=== PATIENT | female | born 1990 | race Caucasian/White ===

== ENCOUNTER → 2016-12-07 | Outpatient (CLI) | payer BC, OTHER ==
--- NOTE | 2016-12-08 10:00 | US ---
EXAMINATION TYPE: US OB anatomy transabd DATE OF EXAM: 12/07/2016 3:52 PM COMPARISON: NONE HISTORY: LGA TECHNIQUE: Transabdominal (TA) EXAM MEASUREMENTS: GESTATIONAL AGE / DATING Physician Established: (33 weeks/4 days) EDC: 01/21/2017 Dates by LMP: (33 weeks/4 days) EDC: 01/21/2017 Dates by First Scan: (33 weeks/4 days) EDC: 01/21/2017 Dates by Current Scan for: (33 weeks/4 days) EDC: 01/21/2017 SURVEY IUP: Single PLACENTA: Anterior PREVIA: No previa NAIN: 13.3 cm Normal CERVICAL LENGTH (transabdominal: norm > 3.0cm): 3.3 cm BIOMETRY PRESENTATION: Vertex LIE: Longitudinal BPD: 8.4 cm 33 weeks / 5 days HC: 30.4 cm 33 weeks / 6 days AC: 30.3 cm 34 weeks / 2 days FL: 6.3 cm 32 weeks / 4 days ESTIMATED WEIGHT IN GRAMS: 2253 grams ESTIMATED WEIGHT IN LBS/OZS: 4 lbs. 15 oz. WEIGHT PERCENTAGE BASED ON ESTABLISHED DATE: 45 % HC/AC: 1.00 normal FL/AC: 20 normal HEART RATE: 161 bpm RHYTHM: Normal ANATOMY SEEN (within normal limits): * Lateral Vent (< 1 cm) 0.9 cm * Midline Falx Cavus Septi Pellucidi Four Chamber Heart Stomach Situs Nose / Lips Diaphragm Kidneys (bilateral) Bladder Cord Insert Three Vessel Cord Longitudinal Spine Transverse Spine ANATOMY NOT SEEN: Cisterna Magna (< 1.1 cm) * Nuchal Fold (< 0.6 cm) * Cerebellum (varies with age) Choroid Plexus (bilateral) Outflow tracts: LVOT/RVOT Arms (bilateral) Legs (bilateral) TECHNOLOGIST IMPRESSION: viable iup, growth congruent with established dates, no abnormality seen by ultrasound, some exam limitations due to advanced age and lie IMPRESSION: 1. Single intrauterine gestation estimated at 33 weeks 4 days gestation. This would've a calculated E DC of 01/21/2017. Cardiac activity measures 161 bpm. 2. There is some limitation on small parts especially through the brain. Extremities are not we ll evaluated.
== END | disposition home or self-care (01) ==
LOC: RADUSWWP 15:30
PROVIDERS: ATTEND Obstetrics & Gynecology
DX: O36.63X0 Maternal care for excessive fetal growth, third trimester, not applicable or unspecified (principal); Z3A.33 33 weeks gestation of pregnancy
CPT/HCPCS: 76811

== ENCOUNTER 2017-01-07 12:48 | Inpatient (IN) | payer BC, OTHER ==
[2017-01-07 13:34] LABS: Appearance,Urine Cloudy (Clear); Bacteria,Urine Occasional /hpf; Bilirubin,Urine Negative (Negative); Glucose,Urine (UA) Negative (Negative); Ketones,Urine Negative (Negative); Leukocyte Esterase,Urine Large (Negative); Mucus,Urine Rare /hpf; Nitrite,Urine Negative (Negative); PH, Urine 6.5 (5.0-8.0); Particle Count 8364; Protein,Urine Trace (Negative); RBC,Urine 4 /hpf (0-5); Specific Gravity,Urine 1.011 (1.001-1.035); Squamous Epithelial Cell,Urine 9 /hpf (0-4); UA Billing (MACRO vs. MICRO) MICRO; Urobilinogen,Urine <2.0 mg/dL (<2.0); WBC,Urine 63 /hpf (0-5)
[2017-01-07 13:45] LABS: Basophils % (A) 0 %; CH 35.1; CHCM 35.1; Eosinophils # (A) 0.1 k/uL (0-0.7); Eosinophils % (A) 1 %; HCT 34.7 % (34.0-46.0); HDW 3.12; HGB 12.3 gm/dL (11.4-16.0); Luc # (Auto) 0.19; Luc % (Auto) 2; Lymphocytes # (A) 1.7 k/uL (1.0-4.8); Lymphocytes % (A) 17 %; MCH 35.6 pg (25.0-35.0); MCHC 35.3 g/dL (31.0-37.0); MCV 100.6 fL (80.0-100.0); Macrocytosis Slight; Mean Platelet Volume 7.9; Monocytes # (A) 0.6 k/uL (0-1.0); Monocytes % (A) 5 %; Neutrophils # (A) 7.7 k/uL (1.3-7.7); Neutrophils % (A) 75 %; RBC 3.45 m/uL (3.80-5.40); RDW 14.1 % (11.5-15.5); WBC 10.2 k/uL (3.8-10.6); WBC (Perox) 10.58
[2017-01-07 14:02] LABS: ALT 25 U/L (9-52); AST 16 U/L (14-36); LDH 388 U/L (313-618); Non-African American GFR(MDRD) 54 (>60 ml/min/1.73 sqM); Uric Acid 7.4 mg/dL (3.7-7.4)
[2017-01-07] MEDS ORDERED: TERBUTALINE 1 MG/ML VIAL SQ PRN (14:20)
[2017-01-07] MEDS ORDERED: METHYLERGONOVINE 0.2 MG/ML 1 ML AMP IM PRN (14:20)
[2017-01-07] MEDS ORDERED: CARBOPROST TROMETHAMINE 250 MCG/ML 1 ML AMP IM PRN (14:20)
[2017-01-07] MEDS ORDERED: OXYTOCIN 10 UNIT/ML 1 ML VIAL IM PRN (14:20)
[2017-01-07] MEDS ORDERED: LIDOCAINE 1% (PF) 10 MG/ML (30 ML SDV) SQ PRN (14:20)
[2017-01-07] MEDS ORDERED: OXYTOCIN 30 UNITS/500 ML NS 30 UNIT in SALINE 1 500ML.BAG IV SCH (14:30)
[2017-01-07] MEDS ORDERED: ONDANSETRON 4 MG/2 ML VIAL IVP STA (14:31)
[2017-01-07] MEDS ORDERED: BUTORPHANOL 1 MG/ML 1 ML VIAL IV PRN (14:31)
[2017-01-07] MEDS: LACTATED RINGERS 1,000 ML IV SCH ×3 (15:03→22:03)
[2017-01-07 15:33] VITALS: BMI 27.8
[2017-01-07] MEDS ORDERED: ACETAMINOPHEN TAB 325 MG TAB PO STA (16:11)
[2017-01-07] MEDS ORDERED: fentaNYL (PF) 50 MCG/ML 5 ML AMP ONE (20:10)
[2017-01-07] MEDS ORDERED: ePHEDrine 50 MG/ML 1 ML AMP ONE (20:10)
[2017-01-07] MEDS ORDERED: BUPIVACAINE (PF) 0.25% 30 ML VIAL ONE (20:10)
[2017-01-07] MEDS ORDERED: SODIUM CHLORIDE 0.9% 100 ML BAG ONE (20:10)
[2017-01-07] MEDS ORDERED: BUPIVACAINE (PF) 0.25% 25 ML, fentaNYL (PF) 200 MCG in SODIUM CHLORIDE 0.9% 71 ML EPIDURAL ONE (20:30)
--- NOTE | 2017-01-07 21:13 | P.HPOB ---
History of Present Illness H&P Date: 01/07/17 Chief Complaint: Headache, elevated blood pressures This is a 26-year-old female 5 para 2 with an estimated date of confinement of 01/21/2017, estimated gestational age of 38-0/7 weeks, who presents to labor and delivery complaining of a headache since yesterday morning and it has not been relieved with Tylenol. She denies any blurry vision. She does complain of right epigastric a since this morning. She also did have some nausea and some vomiting today. She has been feeling good movement. She denies any leakage of fluid. She has been feeling irregular contractions. Her care has been with Dr. Maxwell and has been uncomplicated up until this point. She was observed in triage and had several blood pressures in the 140s over 90s. Lab work was all normal other than her creatinine was slightly elevated. She is being admitted for induction of labor secondary to gestational hypertension with symptomatology. labs: Syphilis antibody-negative nonreactive Random glucose 98 Hepatitis B surface antigen-negative Hemoglobin-12.1 Rubella-immune Blood type-O+ Antibody screen-negative Obstetrical ultrasound-normal anatomy One hour Glucola-115 Group B streptococcus-negative Obstetrical history: . She has a history of 2 vaginal deliveries at term and 2 miscarriages. She has no history of preeclampsia in either of her previous pregnancies. Gynecologic history: No history of sexually transmitted diseases. Social history: She is and works as a [id number] mom. Review of Systems Constitutional: Denies chills, Denies fever Eyes: denies blurred vision Cardiovascular: Denies shortness of breath Gastrointestinal: Reports abdominal pain (Right upper quadrant), Reports nausea , Reports vomiting Genitourinary: Reports , Denies dysuria Musculoskeletal: Denies myalgias Neurological: Reports headaches, Denies numbness, Denies weakness Past Medical History Additional Past Medical History / Comment(s): CYSTIC FIBROSIS History of Any Multi-Drug Resistant Organisms: None Reported Past Surgical History: Hernia Repair Additional Past Surgical History / Comment(s): LEFT KNEE SURGERY TIMES 2, LEFT WRIST SURGERY, HERNIA Past Anesthesia/Blood Transfusion Reactions: No Reported Reaction Past Psychological History: No Psychological Hx Reported Smoking Status: Never smoker Past Alcohol Use History: None Reported Past Drug Use History: None Reported - Past Family History Father Family Medical History: Diabetes Mellitus Medications and Allergies Home Medications Medication Instructions Recorded Confirmed Type Albuterol Inhaler [Ventolin 1 - 2 puff INHALATION Q6HR PRN 09/27/15 01/07/17 History Inhaler] Acetaminophen Tab [Tylenol Tab] 650 mg PO Q4H 01/07/17 01/07/17 History Pnv with Ca,No.72/Iron/FA 1 tab PO DAILY 01/07/17 01/07/17 History [ Plus Tablet] Allergies Allergy/AdvReac Type Severity Reaction Status Date / Time iodine AdvReac Rash/Hives Verified 09/27/15 11:15 povidone-iodine AdvReac Rash/Hives Verified 09/27/15 11:15 [From Betadine] soap [From Betadine] AdvReac Rash/Hives Verified 09/27/15 11:15 tobramycin AdvReac Nausea & Verified 09/27/15 11:15 Vomiting Exam Osteopathic Statement: *. No significant issues noted on an osteopathic structural exam other than those noted in the History and Physical/Consult. - Vital Signs Vital signs: Vital Signs Temp Pulse Resp BP Pulse Ox 01/07/17 14:24 97.9 F 117 H 16 136/90 100 01/07/17 13:12 97.9 F 117 H 16 136/90 100 Intake and Output 01/07/17 01/07/17 01/07/17 06:59 14:59 22:59 Other: Weight 68.946 kg Patient Weight 01/08/17 06:59 Weight 68.946 kg Gen.: Well-developed well-nourished white female in no acute distress HEENT: Within normal limits Heart regular rate and rhythm Lungs: Clear to auscultation bilaterally Abdomen: Cervix: 1-2 cm/60%/-2 station heart tones: Reactive Contractions: Irregular Extremities: Trace edema, negative Homans Results Result Diagrams: 01/07/17 13:35 01/07/17 13:35 Abnormal Lab Results - Last 24 Hours (Table) 01/07/17 01/07/17 01/07/17 Range/Units 13:05 13:35 13:35 RBC 3.45 L (3.80-5.40) m/uL MCV 100.6 H (80.0-100.0) fL MCH 35.6 H (25.0-35.0) pg Creatinine 1.19 H (0.52-1.04) mg/dL Urine Appearance Cloudy H (Clear) Urine Protein Trace H (Negative) Ur Leukocyte Esterase Large H (Negative) Urine WBC 63 H (0-5) /hpf Ur Squamous Epith Cells 9 H (0-4) /hpf Urine Bacteria Occasional H (None) /hpf Urine Mucus Rare H (None) /hpf Assessment and Plan (1) Gestational hypertension Status: Acute Plan: Will proceed with induction of labor secondary to gestational hypertension with symptomatology. We'll proceed with oxytocin induction of labor and artificial rupture of membranes. Epidural anesthesia if desired. Expectant management. We'll continue to monitor blood pressures closely.
--- NOTE | 2017-01-07 21:29 | P.MSEPDOC ---
Presenting Problems - Arrival Data Date of Arrival on Unit: 01/07/17 Time of Arrival on Unit: 12:45 Mode of Transport: Ambulatory - Complaint OB-Reason for Admission/Chief Complaint: Observation/Evaluation Comment: headache x2 days, right shoulder/rib pain, nausea/vomiting x2 days Medical History - Information : 5 Para: 2 Term: 2 : 0 Abortions: Spontaneous or Elective: 2 Number of Living Children: 2 - Gestational Age Expected Date of Delivery: 01/21/17 Gestational Age by ARIANNA (wks/days): 38 Weeks and 0 Days Review of Systems - Review of Systems Constitutional: No problems Breast: No problems ENT: No problems Cardiovascular: No problems Respiratory: No problems Gastrointestinal: No problems Genitourinary: No problems Musculoskeletal: No problems Neurological: No problems Skin: No problems Vital Signs - Temperature Temperature: 97.9 F Temperature Source: Temporal Artery Scan - Pulse Right Sitting Brachial Pulse Rate: 117 Pulse Assessment Method: Automatic Cuff - Respirations Respiratory Rate: 16 Oxygen Delivery Method: Room Air O2 Sat by Pulse Oximetry: 100 - Blood Pressure Right Arm Sitting Blood Pressure: 136/90 Blood Pressure Mean: 105 Blood Pressure Source: Automatic Cuff Medical Screen Scoring (Pre) - Cervical Exam Dilation: 1-3 cm = 1 Effacement: More than 50% = 2 Membranes: Intact - Uterine Contractions Frequency: > or = 36 weeks =2 Duration: N/A Intensity: N/A - Maternal Vital Signs Maternal Temperature: N/A Maternal Blood Pressure: N/A Signs of Preeclampsia: Headache = 1, Nausea/Vomiting = 1, Visual Disturbance = 1 Maternal Respirations: N/A - Maternal Trauma Maternal Trauma: N/A - Assessment Baseline FHR: 145 Heart Rate - NICHD Category: Category I (Normal) = 0 NST: Reactive Position: N/A Station: N/A - Total Score Total Score (Pre): 8 - Level of Risk Level of Risk: Medium (6-9) Physician Notification (Pre) - Physician Notified Physician Notified Date: 01/07/17 Physician Notified Time: 13:20 Physician/Practitioner Notifed:: Dr Mendoza Spoke With: Dr Mendoza New Order Received: Yes - Notification Comment Comment: PIH labs, PO ice/fluids, sterile vaginal exam. Call with report. Physician Notification (Post) - Physician Notified Physician Notified Date: 01/07/17 Physician Notified Time: 14:20 Physician/Practitioner Notified:: Dr Mendoza Spoke With: Dr Mendoza New Order Received: Yes - Notification Comment Comment: Admit for induction of labor. start pitocin per protocol. Orders received for pain managment. Disposition - Disposition OB Disposition: Admit, LDRP Suite I agree with the RN Medical Screening Exam: Yes Risk & Benefit of care provided described in d/c instruction: Yes Diagnosis: GESTATIONAL HTN W/O SIGNIFICANT PROTEINURIA, THIRD TRIMESTER
--- NOTE | 2017-01-07 23:15 | P.PROBDLV ---
Vaginal Delivery Note - . Vaginal Delivery Note: The patient progressed to complete dilation after oxytocin induction of labor and artificial rupture membranes with clear fluid noted. She did receive an epidural anesthetic. Once reaching complete dilation she began pushing. Infant 's head came to a crown. With one further push the 's head delivered across the perineum followed by the anterior shoulder. Nose and mouth were bulb suctioned at the perineum. With one further push the infant's body delivered across the perineum and was placed on mother's abdomen. Cord was clamped and cut and was taken to warmer for evaluation. A viable male infant was noted with scores of 9 at 1 minute and 9 at 5 minutes and infant weight of 7 lbs. 1 oz. Placenta delivered shortly thereafter, intact, with a three-vessel cord. Uterus contracted well after oxytocin was given and uterine massage was carried out. Inspection of the perineum revealed no perineal lacerations. A gloved hand was placed into the intrauterine cavity and there was noted to be a small amount of membranous type tissue adherent anteriorly. This was removed easily and bleeding was very minimal. Estimated blood loss is approximately 100 mL's. Both mother and are in stable condition.
[2017-01-08] MEDS ORDERED: BENZOCAINE/MENTHOL SPRAY 1 GM/SPRAY AEROSOL TOPICAL PRN (03:37)
[2017-01-08] MEDS ORDERED: diphenhydrAMINE 50 MG/ML 1 ML VIAL IVP PRN ×2 (03:37)
[2017-01-08] MEDS ORDERED: OXYTOCIN 30 UNITS/500 ML NS 30 UNIT in SALINE 1 500ML.BAG IV SCH (03:37)
[2017-01-08] MEDS ORDERED: diphenhydrAMINE 25 MG CAP PO PRN (03:37)
[2017-01-08] MEDS ORDERED: WITCH HAZEL 1 EACH MED..PAD TOPICAL PRN (03:37)
[2017-01-08] MEDS ORDERED: ACETAMINOPHEN TAB 325 MG TAB PO PRN (03:37)
[2017-01-08] MEDS ORDERED: LANOLIN CREAM 5 GM TUBE TOPICAL PRN (03:37)
[2017-01-08] MEDS ORDERED: ZOLPIDEM 5 MG TAB PO PRN (03:37)
[2017-01-08] MEDS ORDERED: SIMETHICONE 80 MG CHEWABLE PO PRN (03:37)
[2017-01-08] MEDS ORDERED: IBUPROFEN 600 MG TAB PO PRN (03:37)
[2017-01-08] MEDS ORDERED: ALBUTEROL INHALER 60 PUFF/8 GM INHALER INHALATION PRN (03:37)
[2017-01-08] MEDS ORDERED: HYDROCORTISONE 2.5% RECTAL CREAM 30 GM TUBE RECTAL PRN (03:37)
[2017-01-08] MEDS ORDERED: diphenhydrAMINE 50 MG CAP PO PRN (03:37)
[2017-01-08] MEDS ORDERED: Acetaminophen-Codeine 300-30mg TAB PO PRN ×2 (03:37)
[2017-01-08] MEDS ORDERED: ACETAMINOPHEN TAB 325 MG TAB PO SCH (03:45)
[2017-01-08] MEDS ORDERED: ALBUTEROL NEBULIZED 2.5 MG/3 ML INHALATION PRN (04:30)
[2017-01-08] MEDS ORDERED: ONDANSETRON 4 MG/2 ML VIAL IVP STA (04:30)
[2017-01-08 06:57] LABS: Basophils % (A) 0 %; CH 35.2; CHCM 34.9; Eosinophils % (A) 1 %; HCT 30.4 % (34.0-46.0); HDW 3.01; HGB 10.5 gm/dL (11.4-16.0); Luc # (Auto) 0.18; Luc % (Auto) 2; Lymphocytes # (A) 1.4 k/uL (1.0-4.8); Lymphocytes % (A) 14 %; MCH 35.1 pg (25.0-35.0); MCHC 34.6 g/dL (31.0-37.0); MCV 101.5 fL (80.0-100.0); Macrocytosis Slight; Mean Platelet Volume 8.1; Monocytes # (A) 0.6 k/uL (0-1.0); Monocytes % (A) 6 %; Neutrophils # (A) 7.6 k/uL (1.3-7.7); Neutrophils % (A) 77 %; RBC 2.99 m/uL (3.80-5.40); RDW 14.2 % (11.5-15.5); WBC 9.9 k/uL (3.8-10.6); WBC (Perox) 10.48
[2017-01-08] MEDS: SENNOSIDES-DOCUSATE SODIUM 1 EACH TAB PO SCH (08:00)
[2017-01-08 08:59] VITALS: RESP 18
[2017-01-08] MEDS ORDERED: NON-FORMULARY DRUG (Pnv With Ca,No.72/Iron/Fa [Prenatal Plus Tablet] 1 TAB) PO SCH (09:00)
--- NOTE | 2017-01-08 12:14 | P.PNOBGVD ---
Subjective - Subjective Principal diagnosis: Status post vaginal delivery day #1 Interval history: Patient is doing okay. She has had some occasional nausea still. Lochia is decreasing. She is bottle feeding. Pain is fairly well controlled. She did not require any pain medication. She denies any headache at this time. Patient reports: Reports appetite normal, Reports voiding normally, Reports pain well controlled, Reports ambulating normally Broseley: doing well, bottle feeding Objective - Latest Vital Signs Latest vital signs: Vital Signs Temp Pulse Resp BP Pulse Ox 01/08/17 08:00 97.8 F 77 18 138/81 01/08/17 04:00 98.1 F 95 16 139/75 01/08/17 01:19 111 H 16 136/76 01/08/17 00:49 98.1 F 89 16 144/69 01/08/17 00:19 94 18 151/73 01/08/17 00:00 93 18 148/78 01/07/17 23:49 36.4 F L 93 18 148/78 01/07/17 23:34 36.4 F L 114 H 18 144/93 01/07/17 23:19 36.4 F L 141 H 18 122/65 01/07/17 21:29 97.9 F 117 H 16 136/90 100 01/07/17 14:24 97.9 F 117 H 16 136/90 100 01/07/17 13:12 97.9 F 117 H 16 136/90 100 Intake and Output 01/07/17 01/08/17 01/08/17 22:59 06:59 14:59 Output Total 100 200 Balance -100 -200 Output: Urine 100 Estimated Blood Loss 200 Other: # Voids 1 - Exam Extremities: Present: normal. Absent: tenderness, edema Abdomen: Present: normal appearance, soft. Absent: distention, tenderness Uterus: Present: normal, firm. Absent: tenderness - Labs Labs: Abnormal Lab Results - Last 24 Hours (Table) 01/07/17 01/07/17 01/07/17 Range/Units 13:05 13:35 13:35 RBC 3.45 L (3.80-5.40) m/uL Hgb (11.4-16.0) gm/dL Hct (34.0-46.0) % MCV 100.6 H (80.0-100.0) fL MCH 35.6 H (25.0-35.0) pg Creatinine 1.19 H (0.52-1.04) mg/dL Urine Appearance Cloudy H (Clear) Urine Protein Trace H (Negative) Ur Leukocyte Esterase Large H (Negative) Urine WBC 63 H (0-5) /hpf Ur Squamous Epith Cells 9 H (0-4) /hpf Urine Bacteria Occasional H (None) /hpf Urine Mucus Rare H (None) /hpf 01/08/17 Range/Units 06:40 RBC 2.99 L (3.80-5.40) m/uL Hgb 10.5 L (11.4-16.0) gm/dL Hct 30.4 L (34.0-46.0) % MCV 101.5 H (80.0-100.0) fL MCH 35.1 H (25.0-35.0) pg Creatinine (0.52-1.04) mg/dL Urine Appearance (Clear) Urine Protein (Negative) Ur Leukocyte Esterase (Negative) Urine WBC (0-5) /hpf Ur Squamous Epith Cells (0-4) /hpf Urine Bacteria (None) /hpf Urine Mucus (None) /hpf Assessment and Plan (1) Gestational hypertension Current Visit: Yes Status: Acute Code(s): O13.9 - GESTATIONAL HTN W/O SIGNIFICANT PROTEINURIA, UNSP TRIMESTER SNOMED Code(s): 54147436 (2) Vaginal delivery Narrative/Plan: Impression is status post vaginal delivery day #1. Most of her symptoms have resolved other than some mild nausea which she feels may have been due to a little bit of a stomach flu. This is improving. We'll continue with care today and anticipate discharge home tomorrow morning. Current Visit: Yes Status: Acute Code(s): O80 - ENCOUNTER FOR FULL-TERM UNCOMPLICATED DELIVERY SNOMED Code(s): 165900206
--- NOTE | 2017-01-08 12:17 | P.DS ---
Providers Date of admission: 01/07/17 14:22 Expected date of discharge: 01/08/17 Attending physician: Bonnie Mendoza Primary care physician: Stated None - Discharge Diagnosis(es) (1) Gestational hypertension Current Visit: Yes Status: Acute (2) Vaginal delivery Current Visit: Yes Status: Acute Hospital Course: This is a 26-year-old female 5 para 2 at 38-0/7 weeks who presented with headache, elevated blood pressures, nausea and vomiting. Her labs were all essentially normal other than trace of protein and slightly elevated creatinine. However based on blood pressure criteria, she did meet the criteria for gestational hypertension and since she is over 37 weeks was recommended induction of labor. She underwent oxytocin induction of labor and delivered vaginally a viable male with scores of 9 at 1 minute and 9 at 5 minutes and infant weight of 7 lbs. 1 oz. on 01/07/2017. Her course has been essentially uncomplicated. Lochia is decreasing. Her headache has resolved. She only has mild occasional nausea at this time. Vital signs are stable with decreasing blood pressures. Abdomen is soft with fundus firm and nontender. Impression is status post vaginal delivery day #1. Plan is to discharge home tomorrow. Routine instructions are given. She is advised to follow up with Dr. Maxwell in 6 weeks. She declines a need for any pain medications. She is advised to call the office if she has any further questions or concerns prior to her appointment time. Procedures: Oxytocin induction of labor Spontaneous vaginal delivery of a viable male infant on 01/07/2017. Patient Condition at Discharge: Stable Plan - Discharge Summary Discharge Medication List Albuterol Inhaler [Ventolin Inhaler] 1 - 2 puff INHALATION Q6HR PRN 09/27/15 [ History] Acetaminophen Tab [Tylenol Tab] 650 mg PO Q4H 01/07/17 [History] Pnv with Ca,No.72/Iron/FA [ Plus Tablet] 1 tab PO DAILY 01/07/17 [ History] Follow up Appointment(s)/Referral(s): Gregory Maxwell DO [Doctor of Osteopathic Medicine] - 6 Weeks Activity/Diet/Wound Care/Special Instructions: Instructions 1. Do not begin any exercise program for 3 weeks. 2. Do not resume sexual relations for 3 weeks or longer if uncomfortable. 3. You may take tub baths or showers at any time. 4. You may use tampons if desired after 3 weeks. 5. Keep the area of episiotomy (stitches) clean and dry. 6. If you are not nursing, wear a good fitting, supportive bra during the day and limit fluid intake for at least 1 week to prevent breast engorgement. 7. Call the office, [phone], within the next week to make appointment for your 6 week checkup if it has not already been made. 8. Report any of the following occurrences to the doctor promptly: a. Heavy, excessive bleeding b. Chills, fever c. Burning or frequency of urination d. Pain or redness and breasts if nursing e. Increasing pain or swelling in episiotomy (stitches). In addition to the above instructions, the following additional should be followed: 1. No heavy lifting or straining (exercising) until after 6 week checkup. 2. Keep abdominal incision clean and dry: You may wear a dressing if more comfortable. 3. Make office appointment for 10 days after going home or as instructed by her doctor. Discharge Disposition: HOME SELF-CARE
[2017-01-08 20:13] VITALS: PULSE 74
[2017-01-09 00:39] VITALS: TEMP 98.4
[2017-01-09 09:31] VITALS: BP 139/87
[2017-01-09] MEDS: SENNOSIDES-DOCUSATE SODIUM 1 EACH TAB PO SCH (09:31)
== END 2017-01-09 10:20 | disposition home or self-care (01) | DRG 775 ==
LOC: FBPOP 12:48 → 4FBP 14:22
PROVIDERS: ADMIT Obstetrics & Gynecology; ATTEND Obstetrics & Gynecology
PROC: 10E0XZZ Delivery of Products of Conception, External Approach (ICD-10-PCS; principal; 2017-01-07)
PROC: 00HU33Z Insertion of Infusion Device into Spinal Canal, Percutaneous Approach (ICD-10-PCS; 2017-01-07)
PROC: 3E033VJ Introduction of Other Hormone into Peripheral Vein, Percutaneous Approach (ICD-10-PCS; 2017-01-07)
PROC: 10907ZC Drainage of Amniotic Fluid, Therapeutic from Products of Conception, Via Natural or Artificial Opening (ICD-10-PCS; 2017-01-07)
DX: O13.4 Gestational [pregnancy-induced] hypertension without significant proteinuria, complicating childbirth (principal); E84.9 Cystic fibrosis, unspecified; O75.89 Other specified complications of labor and delivery; Z37.0 Single live birth; Z3A.38 38 weeks gestation of pregnancy; Z83.3 Family history of diabetes mellitus; Z88.8 Allergy status to other drugs, medicaments and biological substances; Z88.1 Allergy status to other antibiotic agents; Z91.041 Radiographic dye allergy status
CPT/HCPCS: 59025; 81001; 82565; 83615; 84450; 84460; 84550; 85025; 88307; 99213

== ENCOUNTER → 2020-11-25 | Outpatient (CLI) | payer BC, OTHER ==
[2020-11-25 17:55] LABS: AST 15 U/L (13-35)
[2020-11-25 17:56] LABS: ALT 14 U/L (8-44)
== END | disposition home or self-care (01) ==
LOC: LABWHC1 07:58
PROVIDERS: ATTEND Obstetrics & Gynecology
DX: O26.619 Liver and biliary tract disorders in pregnancy, unspecified trimester (principal)
CPT/HCPCS: 36415; 84450; 84460

== ENCOUNTER → 2020-12-12 | Outpatient (CLI) | payer BC, OTHER ==
[2020-12-13 03:19] LABS: ALT 18 U/L (8-44); AST 20 U/L (13-35)
== END | disposition home or self-care (01) ==
LOC: LABWHC1 15:59
PROVIDERS: ATTEND Obstetrics & Gynecology
DX: O26.619 Liver and biliary tract disorders in pregnancy, unspecified trimester (principal); Z3A.00 Weeks of gestation of pregnancy not specified
CPT/HCPCS: 36415; 82542; 84450; 84460

== ENCOUNTER 2020-12-30 14:37 | Observation (INO) | payer BC, OTHER ==
[2020-12-30 16:05] LABS: Appearance,Urine Cloudy (Clear); Bacteria,Urine Moderate /hpf; Bilirubin,Urine Negative (Negative); Blood,Urine Negative (Negative); Color,Urine Light Yellow; Glucose,Urine (UA) Negative (Negative); Ketones,Urine Negative (Negative); Leukocyte Esterase,Urine Large (Negative); Mucus,Urine Rare /hpf; Nitrite,Urine Negative (Negative); PH, Urine 6.5 (5.0-8.0); Protein,Urine Negative (Negative); RBC,Urine 2 /hpf (0-5); Specific Gravity,Urine 1.008 (1.001-1.035); Squamous Epithelial Cell,Urine 8 /hpf (0-4); Urobilinogen,Urine <2.0 mg/dL (<2.0); WBC,Urine 8 /hpf (0-5)
[2020-12-30 16:06] LABS: Basophils % (A) 0 %; Eosinophils # (A) 0.1 k/uL (0-0.7); Eosinophils % (A) 1 %; HGB 12.2 gm/dL (11.4-16.0); Lymphocytes # (A) 2.1 k/uL (1.0-4.8); Lymphocytes % (A) 21 %; MCH 34.4 pg (25.0-35.0); MCHC 33.9 g/dL (31.0-37.0); MCV 101.3 fL (80.0-100.0); Macrocytosis Slight; Mean Platelet Volume 8.6; Monocytes # (A) 0.6 k/uL (0-1.0); Monocytes % (A) 6 %; Neutrophils # (A) 7.2 k/uL (1.3-7.7); Neutrophils % (A) 71 %; Platelet Count 338 k/uL (150-450); RBC 3.56 m/uL (3.80-5.40); RDW 14.1 % (11.5-15.5); WBC 10.2 k/uL (3.8-10.6)
[2020-12-30 16:11] LABS: Protein/Creatinine Ratio,Urine 0.34
[2020-12-30 16:12] LABS: ALT 10 U/L (4-34); AST 20 U/L (14-36); African American GFR (CKD) >90 (>60 ml/min/1.73 sqM); Blood Urea Nitrogen 5 mg/dL (7-17); LDH 510 U/L (313-618); Non-African American GFR(CKD) >90 (>60 ml/min/1.73 sqM); Uric Acid 3.6 mg/dL (3.7-7.4)
--- NOTE | 2020-12-30 17:02 | P.HPOB ---
History of Present Illness H&P Date: 12/30/20 Chief Complaint: Urine : Rule out preeclampsia Sonal is a 30-year-old at 35 weeks gestation who arrived to my office today complaining of some epigastric pain. She does have cholestasis was difficult to say if this is from cholestasis, the , or potentially preeclampsia as she had pre-eclampsia with her last necessitating a early delivery. This Precis has been complicated by cholestasis which started multiple weeks ago. She has seen maternal medicine and she is taking medication for the symptoms. It is finally starting to help her symptoms. Her medical history is also significant for cystic fibrosis, but she has minimal sym ptoms or problems from this. Her blood pressures in the office and in labor and delivery have all been normal. The preponderance of her labs were also normal. The only issue was her protein to creatinine ratio. While her urine was negative her protein to creatinine ratio was 0.34 which is noted to be elevated in the mild preeclamptic range. Since this shows negative protein in her urine we are worrying a 24 urine to clarify the protein. As she has this epigastric discomfort plan to admit her and observe her with serial blood pressures and continued monitoring out of the preponderance of caution. All questions are answered for her. She had a by physical profile earlier today that was 10 out of 10 and her ultrasound showed baby was in emla breech presentation. NAIN at that time was also 8.1. Should delivery be needed, consideration for possible version and induction is a consideration as she is but without lobe an NAIN it may be somewhat, complicated to do a version. This was all explained her all questions are answered for her at this time. On physical exam vital signs again are stable and afebrile. Heart regular, lungs clear, extremities without pain. Abdomen soft is no specific pain on palpation. Deep tendon reflexes are +1 to +2 out of 4. No other signs or symptoms of preeclampsia. She denies visual changes/headache. Assessment intrauterine at 35 weeks, breech presentation, questionable mild preeclampsia with cholestasis of Plan 24 urine with continued observation. Should it appear that she needs to be delivered in the next 48 hours consideration for steroids will be given. Past Medical History Additional Past Medical History / Comment(s): CYSTIC FIBROSIS History of Any Multi-Drug Resistant Organisms: None Reported Past Surgical History: Hernia Repair Additional Past Surgical History / Comment(s): LEFT KNEE SURGERY TIMES 2, LEFT WRIST SURGERY, HERNIA Past Anesthesia/Blood Transfusion Reactions: No Reported Reaction Past Psychological History: No Psychological Hx Reported Past Alcohol Use History: None Reported Past Drug Use History: None Reported - Past Family History Father Family Medical History: Diabetes Mellitus Medications and Allergies Home Medications Medication Instructions Recorded Confirmed Type Albuterol Inhaler (Mhu) [Ventolin 1 - 2 puff INHALATION Q6HR PRN 09/27/15 0 01/07/17 History Inhaler] Acetaminophen Tab [Tylenol Tab] 650 mg PO Q4H 01/07/17 01/07/17 History Pnv,Calcium 72/Iron/Folic Acid 1 tab PO DAILY 01/07/17 01/07/17 History [ Plus Tablet] Allergies Allergy/AdvReac Type Severity Reaction Status Date / Time iodine AdvReac Rash/Hives Verified 12/30/20 14:44 povidone-iodine AdvReac Rash/Hives Verified 12/30/20 14:44 [From Betadine] soap [From Betadine] AdvReac Rash/Hives Verified 12/30/20 14:44 tobramycin AdvReac Nausea & Verified 12/30/20 14:44 Vomiting Exam Osteopathic Statement: *. No significant issues noted on an osteopathic structural exam other than those noted in the History and Physical/Consult. Intake and Output 12/30/20 12/30/20 12/30/20 06:59 14:59 22:59 Other: Weight 74.389 kg Results Result Diagrams: 12/30/20 15:39 12/30/20 15:39 Abnormal Lab Results - Last 24 Hours (Table) 12/30/20 12/30/20 12/30/20 Range/Units 15:39 15:39 15:48 RBC 3.56 L (3.80-5.40) m/uL MCV 101.3 H (80.0-100.0) fL BUN 5 L (7-17) mg/dL Creatinine 0.49 L (0.52-1.04) mg/dL Uric Acid 3.6 L (3.7-7.4) mg/dL Urine Appearance Cloudy H (Clear) Ur Leukocyte Esterase Large H (Negative) Urine WBC 8 H (0-5) /hpf Ur Squamous Epith Cells 8 H (0-4) /hpf Urine Bacteria Moderate H (None) /hpf Urine Mucus Rare H (None) /hpf
[2020-12-30 23:16] VITALS: RESP 16
[2020-12-31] MEDS ORDERED: ACETAMINOPHEN TAB 500 MG TAB PO PRN (08:38)
[2020-12-31] MEDS ORDERED: ursodioL 300 MG CAP PO SCH (08:45)
--- NOTE | 2020-12-31 08:48 | P.PN ---
Progress Note - Text Progress Note Date: 12/31/20 Sonal seen and evaluated this morning. Overall she is doing well. Her vital signs continued to be stable. She does have a new onset mild headache for which we'll attempt to treat with Tylenol. We'll restart her Actigall. And we'll continue current care awaiting her 24-hour urine. All questions are answered for her at this time. I decided based on her symptoms that we will now were and ultrasound of her liver and gallbladder to verify no other findings i.e. fatty liver or gallstones.
[2020-12-31] MEDS ORDERED: PANTOPRAZOLE 40 MG TABLET PO STA (09:43)
--- NOTE | 2020-12-31 11:23 | US ---
EXAMINATION TYPE: US abdomen limited DATE OF EXAM: 12/31/2020 COMPARISON: NONE CLINICAL HISTORY: pain. Pt states RUQ pain, pt states 35 weeks EXAM MEASUREMENTS: Liver Length: 14.5 cm Gallbladder Wall: 0.2 cm CBD: 0.3 cm Right Kidney: 11.0 x 4.5 x 4.5 cm Pancreas: Body wnl, tail obscured by overlying bowel gas Liver: Probable hemangioma right inferior lobe= 1.2 x 1.0 x 1.2 cm Gallbladder: wnl Evidence for sonographic Rojo's sign: No CBD: wnl Right Kidney: Mild hydro, lower pole gassed out Patient is . The was not evaluated by ultrasound this time. IMPRESSION: 1. Mild right hydronephrosis. 2. Probable hemangioma right lobe liver
[2020-12-31 17:25] LABS: Total Volume 24 Hour,Urine 2500 mls (800-1800)
[2020-12-31 17:38] LABS: Total Protein 24 Hour,Urine 350 mg/24hr (42.0-225.0)
--- NOTE | 2020-12-31 17:53 | P.DS ---
Providers Date of admission: 12/30/20 16:50 Expected date of discharge: 12/31/20 Attending physician: Gregory Maxwell Primary care physician: Stated None Hospital Course: Yareli is seen and evaluated this afternoon. Her 24 urine returns with evaluated 350 which is consistent with her protein to creatinine ratio. It is noted however that her urine volume was 2500 which may part of the reason that she had a little higher routine value due to such a high volume. That said with her history we are making a presumptive diagnosis of atypical mild preeclampsia. At this time she has a very mild headache the Tylenol did not resolve but no visual changes or epigastric pain is actually little bit better and there is no other signs or symptoms of severe features. As she is only 35 weeks we will plan discharged home with NST and blood pressure check on Tuesday. She is very responsible is a patient and will return should she start having a significant headache epigastric pain and visual changes or any other signs or symptoms of preeclampsia or concerning side effects or issues. It is very difficult to say friendships inserted into this is preeclampsia but based on her history and symptomatology it is safer to diagnose it as mild preeclampsia and be even more aggressive with her monitoring and care. She is essentially on modified bedrest at home with kick counts. She and I did have a lengthy discussion all questions are answered for her. Due to the fact that she is only 35 weeks there is really no specific indication for further hospitalization and with her being essentially asymptomatic (I understand she does have some epigastric discomfort that is improving, but she has no pain or tenderness over the liver area to palpation. She has a mild headache but no significant headache no blurry vision no scotoma no light se nsitivity. Her deep tendon reflexes are normal and her blood pressures are all normal. She is aware that should she develop any severe features i.e. severe headache significant epigastric pain visual changes or other findings she would need to be delivered immediately. However since she is only 35 weeks we'll try manage this outpatient for now. Patient Condition at Discharge: Stable Plan - Discharge Summary New Discharge Prescriptions: No Action Albuterol Inhaler (Mhu) [Ventolin Inhaler] 1 - 2 puff INHALATION Q6HR PRN PRN Reason: Shortness Of Breath Acetaminophen Tab [Tylenol Tab] 650 mg PO Q4H Pnv,Calcium 72/Iron/Folic Acid [ Plus Tablet] 1 tab PO DAILY ursodioL [Ursodiol] 300 mg PO BID Discharge Medication List Albuterol Inhaler (Mhu) [Ventolin Inhaler] 1 - 2 puff INHALATION Q6HR PRN 09/27/15 [History] Acetaminophen Tab [Tylenol Tab] 650 mg PO Q4H 01/07/17 [History] Pnv,Calcium 72/Iron/Folic Acid [ Plus Tablet] 1 tab PO DAILY 01/07/17 [History] ursodioL [Ursodiol] 300 mg PO BID 12/31/20 [History] Follow up Appointment(s)/Referral(s): Gregory Maxwell DO [Doctor of Osteopathic Medicine] - 1 Week Activity/Diet/Wound Care/Special Instructions: Return with any symptoms of preeclampsia. Severe headache, epigastric pain, visual changes anything that is concerning at all return to labor and delivery. Come in for nonstress test and blood pressure check on Tuesday. Discharge Disposition: HOME SELF-CARE
[2020-12-31 18:23] VITALS: BP 121/76; PULSE 100; TEMP 97.8
== END 2020-12-31 18:30 | disposition home or self-care (01) ==
LOC: FBPOP 14:37 → 4FBP 16:50
PROVIDERS: ADMIT Obstetrics & Gynecology; ATTEND Obstetrics & Gynecology
DX: O14.03 Mild to moderate pre-eclampsia, third trimester (principal); O26.893 Other specified pregnancy related conditions, third trimester; O99.283 Endocrine, nutritional and metabolic diseases complicating pregnancy, third trimester; O32.1XX0 Maternal care for breech presentation, not applicable or unspecified; Z3A.35 35 weeks gestation of pregnancy; K83.1 Obstruction of bile duct; E84.9 Cystic fibrosis, unspecified; Z79.899 Other long term (current) drug therapy; Z88.1 Allergy status to other antibiotic agents; Z88.8 Allergy status to other drugs, medicaments and biological substances; Z87.59 Personal history of other complications of pregnancy, childbirth and the puerperium; Z98.890 Other specified postprocedural states; Z83.3 Family history of diabetes mellitus
CPT/HCPCS: 59025; 82570; 84156 ×2; 81050; 82565; 83615; 84450; 84460; 84520; 84550; 85025; 81001; 76705; G0378 ×2

== ENCOUNTER 2021-01-03 16:00 | Outpatient (CLI) | payer BC, OTHER ==
[2021-01-03 16:27] VITALS: BP 128/77; PULSE 108; RESP 16; TEMP 98.1
== END 2021-01-03 16:20 | disposition home or self-care (01) ==
LOC: FBPOP 16:00
PROVIDERS: ATTEND Obstetrics & Gynecology
DX: O26.613 Liver and biliary tract disorders in pregnancy, third trimester (principal); K83.1 Obstruction of bile duct; Z3A.35 35 weeks gestation of pregnancy
CPT/HCPCS: 59025; 99213

== ENCOUNTER 2021-01-06 16:22 | Outpatient (CLI) | payer BC, OTHER ==
[2021-01-06 17:39] LABS: Creatinine,Urine Random 21.6 mg/dL; Protein/Creatinine Ratio,Urine 0.694
[2021-01-06 17:54] LABS: HCT 33.2 % (34.0-46.0); HGB 11.8 gm/dL (11.4-16.0); MCH 35.5 pg (25.0-35.0); MCHC 35.7 g/dL (31.0-37.0); MCV 99.7 fL (80.0-100.0); Mean Platelet Volume 7.7; Platelet Count 311 k/uL (150-450); RBC 3.33 m/uL (3.80-5.40); RDW 13.6 % (11.5-15.5)
[2021-01-06 18:03] LABS: ALT 11 U/L (4-34); AST 20 U/L (14-36); African American GFR (CKD) >90 (>60 ml/min/1.73 sqM); Blood Urea Nitrogen 4 mg/dL (7-17); Non-African American GFR(CKD) >90 (>60 ml/min/1.73 sqM); Uric Acid 3.9 mg/dL (3.7-7.4)
== END 2021-01-06 18:25 | disposition home or self-care (01) ==
LOC: FBPOP 16:22
PROVIDERS: ATTEND Obstetrics & Gynecology
DX: Z36.89 Encounter for other specified antenatal screening (principal)
CPT/HCPCS: 59025; 82565; 82570; 84156; 84450; 84460; 84520; 84550; 85027; 99215

== ENCOUNTER 2021-01-08 07:23 | Inpatient (IN) | payer BC, OTHER ==
[2021-01-08] MEDS ORDERED: OXYTOCIN 10 UNIT/ML 1 ML VIAL IM PRN (07:51)
[2021-01-08] MEDS ORDERED: CARBOPROST TROMETHAMINE 250 MCG/ML 1 ML AMP IM PRN (07:51)
[2021-01-08] MEDS ORDERED: LIDOCAINE 0.5% (PF) 5 MG/ML (50 ML SDV) SQ PRN (07:51)
[2021-01-08] MEDS ORDERED: METHYLERGONOVINE 0.2 MG/ML 1 ML AMP IM PRN (07:51)
[2021-01-08] MEDS ORDERED: TERBUTALINE 1 MG/ML VIAL SQ PRN (07:51)
[2021-01-08] MEDS ORDERED: OXYTOCIN 30 UNITS/500 ML NS 30 UNIT in SALINE 1 500ML.BAG IV SCH (08:00)
[2021-01-08] MEDS: LACTATED RINGERS 1,000 ML IV SCH ×3 (08:15→22:35)
[2021-01-08 08:56] LABS: Basophils % (A) 0 %; Eosinophils # (A) 0.1 k/uL (0-0.7); Eosinophils % (A) 1 %; HCT 33.4 % (34.0-46.0); HGB 11.5 gm/dL (11.4-16.0); Lymphocytes # (A) 2.3 k/uL (1.0-4.8); Lymphocytes % (A) 26 %; MCH 34.7 pg (25.0-35.0); MCHC 34.5 g/dL (31.0-37.0); MCV 100.8 fL (80.0-100.0); Macrocytosis Slight; Mean Platelet Volume 7.8; Monocytes # (A) 0.4 k/uL (0-1.0); Monocytes % (A) 5 %; Neutrophils # (A) 5.8 k/uL (1.3-7.7); Neutrophils % (A) 67 %; Platelet Count 342 k/uL (150-450); RBC 3.31 m/uL (3.80-5.40); RDW 13.8 % (11.5-15.5); WBC 8.7 k/uL (3.8-10.6)
[2021-01-08 09:00] LABS: INR 0.9 (<1.2); Partial Thromboplastin Time 22.5 sec (22.0-30.0); Prothrombin Time 9.4 sec (9.0-12.0)
[2021-01-08 09:11] LABS: ALT 12 U/L (4-34); AST 20 U/L (14-36); African American GFR (CKD) >90 (>60 ml/min/1.73 sqM); Blood Urea Nitrogen 6 mg/dL (7-17); LDH 425 U/L (313-618); Non-African American GFR(CKD) >90 (>60 ml/min/1.73 sqM); Uric Acid 4.4 mg/dL (3.7-7.4)
[2021-01-08 10:47] LABS: Creatinine,Urine Random 123.8 mg/dL; Protein/Creatinine Ratio,Urine 0.097
--- NOTE | 2021-01-08 10:55 | P.HPOB ---
History of Present Illness H&P Date: 01/08/21 Chief Complaint: Intrauterine at 36 weeks with atypical preeclampsia and severe fe Sonal is a 30-year-old 6 para 3 at 36 weeks gestation who arrives complaining of severe headache since last night has not improved with Tylenol and on 2 prior occasions is had protein creatinine ratio greater than 0.3. Her was complicated by cholestasis that began to occur at approximately 31 weeks. She was placed on Actigall which did help her symptoms but did not relieve them completely. Deferred products of her labs have been normal with that regard that she did see maternal medicine who agreed with diagnosis. Over the last 2 weeks she has had worsening of symptoms with some epigastric pain and headaches she also was in elma breech presentation but today the baby is vertex and with her other symptoms worsening and suspicion for preeclampsia based on prior labs will plan induction of labor for same. We did speak with maternal medicine who related that anytime after 36 weeks should there be some change that is concerning that be fine to move forward with the delivery as current recommendations for cholestasis do include delivery at 36 weeks as needed. We do have a category 1 tracing. She is not dk. She is dilated to 1 cm 60% effaced and -3 station. We'll plan to use Pitocin for augmentation of labor and trying get her a little more dilated and the baby low further down prior to rupturing membranes. All the questions are answered for her at this time. She does have a personal history of cystic fibrosis as well. Past Medical History Additional Past Medical History / Comment(s): cystic fibrosis History of Any Multi-Drug Resistant Organisms: None Reported Past Surgical History: Hernia Repair Additional Past Surgical History / Comment(s): LEFT KNEE SURGERY TIMES 2, LEFT WRIST SURGERY, HERNIA Past Anesthesia/Blood Transfusion Reactions: No Reported Reaction Smoking Status: Never smoker - Past Family History Father Family Medical History: Diabetes Mellitus Medications and Allergies Home Medications Medication Instructions Recorded Confirmed Type Albuterol Inhaler (Mhu) [Ventolin 1 - 2 puff INHALATION Q6HR PRN 09/27/15 01/08/21 History Inhaler] Acetaminophen Tab [Tylenol Tab] 650 mg PO Q4H 01/07/17 01/08/21 History Pnv,Calcium 72/Iron/Folic Acid 1 tab PO HS 01/07/17 01/08/21 History [ Plus Tablet] ursodioL [Ursodiol] 300 mg PO BID 12/31/20 01/08/21 History Omeprazole [PriLOSEC] 10 mg PO DAILY 01/08/21 01/08/21 History Allergies Allergy/AdvReac Type Severity Reaction Status Date / Time iodine AdvReac Rash/Hives Verified 01/08/21 07:47 povidone-iodine AdvReac Rash/Hives Verified 01/08/21 07:47 [From Betadine] soap [From Betadine] AdvReac Rash/Hives Verified 01/08/21 07:47 tobramycin AdvReac Nausea & Verified 01/08/21 07:47 Vomiting Exam Osteopathic Statement: *. No significant issues noted on an osteopathic structural exam other than those noted in the History and Physical/Consult. Vital Signs Temp Pulse Resp BP Pulse Ox 01/08/21 08:38 98.1 F 93 16 121/78 100 01/08/21 08:27 97.7 F 94 16 136/73 98 Intake and Output 01/07/21 01/08/21 01/08/21 22:59 06:59 14:59 Other: Weight 74.389 kg - OBG Physical Exam Breast: both: normal (no masses) Abdomen: bowel sounds normal, no diffuse tenderness, no bruit present, no guarding noted, no hepatomegaly, no splenomegaly, no mass Vulva: both: normal Vagina: normal moisture, no discharge Cervix: no lesion, no discharge Uterus: normal size, normal contour Adnexa: both: normal Anus/Rectum: normal perianal skin, no rectal mass, no hemorrhoids, heme negative Results Result Diagrams: 01/08/21 08:15 01/08/21 08:15 Abnormal Lab Results - Last 24 Hours (Table) 01/08/21 01/08/21 Range/Units 08:15 08:15 RBC 3.31 L (3.80-5.40) m/uL Hct 33.4 L (34.0-46.0) % MCV 100.8 H (80.0-100.0) fL BUN 6 L (7-17) mg/dL Creatinine 0.50 L (0.52-1.04) mg/dL
--- NOTE | 2021-01-08 10:57 | P.HPOB ---
History of Present Illness H&P Date: 01/08/21 Chief Complaint: Intrauterine with cholestasis and preeclampsia Past Medical History Additional Past Medical History / Comment(s): cystic fibrosis History of Any Multi-Drug Resistant Organisms: None Reported Past Surgical History: Hernia Repair Additional Past Surgical History / Comment(s): LEFT KNEE SURGERY TIMES 2, LEFT WRIST SURGERY, HERNIA Past Anesthesia/Blood Transfusion Reactions: No Reported Reaction Smoking Status: Never smoker - Past Family History Father Family Medical History: Diabetes Mellitus Medications and Allergies Home Medications Medication Instructions Recorded Confirmed Type Albuterol Inhaler (Mhu) [Ventolin 1 - 2 puff INHALATION Q6HR PRN 09/27/15 01/08/21 History Inhaler] Acetaminophen Tab [Tylenol Tab] 650 mg PO Q4H 01/07/17 01/08/21 History Pnv,Calcium 72/Iron/Folic Acid 1 tab PO HS 01/07/17 01/08/21 History [ Plus Tablet] ursodioL [Ursodiol] 300 mg PO BID 12/31/20 01/08/21 History Omeprazole [PriLOSEC] 10 mg PO DAILY 01/08/21 01/08/21 History Allergies Allergy/AdvReac Type Severity Reaction Status Date / Time iodine AdvReac Rash/Hives Verified 01/08/21 07:47 povidone-iodine AdvReac Rash/Hives Verified 01/08/21 07:47 [From Betadine] soap [From Betadine] AdvReac Rash/Hives Verified 01/08/21 07:47 tobramycin AdvReac Nausea & Verified 01/08/21 07:47 Vomiting Exam Osteopathic Statement: *. No significant issues noted on an osteopathic structural exam other than those noted in the History and Physical/Consult. Vital Signs Temp Pulse Resp BP Pulse Ox 01/08/21 08:38 98.1 F 93 16 121/78 100 Intake and Output 01/07/21 01/08/21 01/08/21 22:59 06:59 14:59 Other: Weight 74.389 kg Results Result Diagrams: 01/08/21 08:15 01/08/21 08:15 Abnormal Lab Results - Last 24 Hours (Table) 01/08/21 01/08/21 Range/Units 08:15 08:15 RBC 3.31 L (3.80-5.40) m/uL Hct 33.4 L (34.0-46.0) % MCV 100.8 H (80.0-100.0) fL BUN 6 L (7-17) mg/dL Creatinine 0.50 L (0.52-1.04) mg/dL
[2021-01-08 11:04] LABS: Amorphous Sediment,Urine Rare /hpf; Appearance,Urine Cloudy (Clear); Bilirubin,Urine Negative (Negative); Blood,Urine Negative (Negative); Color,Urine Yellow; Glucose,Urine (UA) Negative (Negative); Ketones,Urine Negative (Negative); Leukocyte Esterase,Urine Moderate (Negative); Mucus,Urine Rare /hpf; Nitrite,Urine Negative (Negative); PH, Urine 7.5 (5.0-8.0); Protein,Urine Trace (Negative); RBC,Urine 1 /hpf (0-5); Specific Gravity,Urine 1.014 (1.001-1.035); Squamous Epithelial Cell,Urine 2 /hpf (0-4); Urobilinogen,Urine <2.0 mg/dL (<2.0); WBC,Urine 6 /hpf (0-5)
[2021-01-08] MEDS: ACETAMINOPHEN IV (For NPO) 1,000 MG in EMPTY BAG 1 BAG IVPB PRN ×2 (14:06→20:29)
[2021-01-08] MEDS ORDERED: ROPIVACAINE 5MG/ML 20ML VIAL ONE (21:13)
[2021-01-08] MEDS ORDERED: ePHEDrine SULFATE/0.9% NACL/PF 50 MG/5 ML SYRINGE IV ONE (21:13)
[2021-01-08] MEDS ORDERED: SODIUM CHLORIDE 0.9% 100 ML BAG ONE (21:13)
[2021-01-08] MEDS ORDERED: fentaNYL (PF) 50 MCG/ML 5 ML AMP ONE (21:13)
[2021-01-08] MEDS ORDERED: diphenhydrAMINE 25 MG CAP PO PRN (23:52)
[2021-01-08] MEDS ORDERED: ACETAMINOPHEN TAB 325 MG TAB PO PRN (23:52)
[2021-01-08] MEDS ORDERED: diphenhydrAMINE 50 MG CAP PO PRN (23:52)
[2021-01-08] MEDS ORDERED: SIMETHICONE 80 MG CHEWABLE PO PRN (23:52)
[2021-01-08] MEDS ORDERED: BENZOCAINE/MENTHOL SPRAY 1 GM/SPRAY AEROSOL TOPICAL PRN (23:52)
[2021-01-08] MEDS ORDERED: diphenhydrAMINE 50 MG/ML 1 ML VIAL IVP PRN ×2 (23:52)
[2021-01-08] MEDS ORDERED: ZOLPIDEM 5 MG TAB PO PRN (23:52)
[2021-01-08] MEDS ORDERED: HYDROCORTISONE 2.5% RECTAL CREAM 30 GM TUBE RECTAL PRN (23:52)
[2021-01-08] MEDS ORDERED: LANOLIN CREAM 5 GM TUBE TOPICAL PRN (23:52)
--- NOTE | 2021-01-08 23:54 | P.PROBDLV ---
Vaginal Delivery Note - . Vaginal Delivery Note: Sonal progressed to complete and pushed with spontaneous vaginal delivery of a viable female over intact perineum. Falling deliver the head from left occiput anterior position anterior posterior shoulders were easily delivered followed by the remainder the baby. Mouth nares were then bulb suctioned and baby was placed mother's abdomen where the umbilical cord was left pulsate for 40 seconds prior to clamping cutting. Once this was completed nursery personnel was present and assumed care. Placenta was then delivered intact Pitocin was added to the IV. scores were 9 and 9 at one and 5 minutes weight was 6 lbs. 4 oz. Both mother and baby are stable following delivery.
[2021-01-09] MEDS: IBUPROFEN 600 MG TAB PO SCH ×3 (00:20→21:09)
[2021-01-09] MEDS ORDERED: ROPIVACAINE 100 MG, fentaNYL (PF). 200 MCG in SODIUM CHLORIDE 0.9% 76 ML EPIDURAL ONE (05:46)
--- NOTE | 2021-01-09 08:02 | P.PNOBGVD ---
Subjective - Subjective Principal diagnosis: day 1 Interval history: Sonal delivered shortly before midnight and is doing well this morning. We'll continue current care for her at this time and all questions are answered for her. Patient reports: Reports appetite normal, Reports voiding normally, Reports pain well controlled, Reports ambulating normally [place]: doing well Objective - Latest Vital Signs Latest vital signs: Vital Signs Temp Pulse Resp BP Pulse Ox 01/09/21 04:00 98.6 F 77 16 109/70 01/09/21 01:45 98.0 F 93 16 115/56 01/09/21 01:15 100 16 114/56 01/09/21 00:45 99 16 121/57 01/09/21 00:30 100 16 125/58 01/09/21 00:15 98 16 145/62 01/09/21 00:00 115 H 16 150/62 01/08/21 23:45 99.2 F 109 H 16 149/72 01/08/21 08:38 98.1 F 93 16 121/78 100 01/08/21 08:27 97.7 F 94 16 136/73 98 Intake and Output 01/08/21 01/09/21 01/09/21 22:59 06:59 14:59 Intake Total 1400 Balance 1400 Intake: IV 1400 Other: # Voids 1 - Labs Labs: Abnormal Lab Results - Last 24 Hours (Table) 01/08/21 01/08/21 01/08/21 Range/Units 08:15 08:15 10:20 RBC 3.31 L (3.80-5.40) m/uL Hct 33.4 L (34.0-46.0) % MCV 100.8 H (80.0-100.0) fL BUN 6 L (7-17) mg/dL Creatinine 0.50 L (0.52-1.04) mg/dL Urine Appearance Cloudy H (Clear) Urine Protein Trace H (Negative) Ur Leukocyte Esterase Moderate H (Negative) Urine WBC 6 H (0-5) /hpf Amorphous Sediment Rare H (None) /hpf Urine Mucus Rare H (None) /hpf
[2021-01-09] MEDS: SENNOSIDES-DOCUSATE SODIUM 1 EACH TAB PO SCH ×2 (08:58→21:09)
[2021-01-09] MEDS: LACTATED RINGERS 1,000 ML IV SCH (21:08)
[2021-01-09 23:57] VITALS: TEMP 98.3
[2021-01-10] MEDS: IBUPROFEN 600 MG TAB PO SCH ×2 (01:04→08:32)
--- NOTE | 2021-01-10 07:29 | P.PNOBGVD ---
Subjective - Subjective Patient reports: Reports appetite normal, Reports voiding normally, Reports pain well controlled, Reports ambulating normally : doing well Objective - Latest Vital Signs Latest vital signs: Vital Signs Temp Pulse Resp BP 01/09/21 23:54 98.3 F 89 16 108/69 01/09/21 16:00 98.7 F 93 16 115/74 01/09/21 12:02 98.2 F 81 16 106/71 01/09/21 08:00 95.1 F L 72 16 107/69 Intake and Output 01/09/21 01/10/21 01/10/21 22:59 06:59 14:59 Other: # Voids 2 1 - Exam Lungs: bilateral: normal Chest: Normal S1, Normal S2 Extremities: Present: normal Abdomen: Present: normal appearance, soft Uterus: Present: normal, firm Assessment and Plan Assessment: day #2. Patient is resting without complaints desires to go home. Vital signs are stable she's afebrile. Uterus is firm nontender and she is having normal lochia. My impression is a normal course. Plan is to continue routine care and discharge home later today. (1) Vaginal delivery Current Visit: No Status: Acute Code(s): O80 - ENCOUNTER FOR FULL-TERM UNCOMPLICATED DELIVERY SNOMED Code(s): 494355111
--- NOTE | 2021-01-10 07:33 | P.DS ---
Providers Date of admission: 01/08/21 07:51 Expected date of discharge: 01/10/21 Attending physician: Gregory Maxwell Primary care physician: Stated None - Discharge Diagnosis(es) (1) Vaginal delivery Current Visit: No Status: Acute Hospital Course: Please see dictated H&P per Dr. Maxwell on this patient's admission. Brief summary this is a 30-year-old 6 para 3 female 36-2/7 weeks gestation admitted to labor and delivery for induction of labor. Patient goes on to have a vaginal delivery of viable female infant. Please see dictated delivery note. day #2 patient's felt be stable for discharge home follow up with Dr. Maxwell in 6 weeks. Procedures: Induction of labor and normal vaginal delivery Patient Condition at Discharge: Good Plan - Discharge Summary New Discharge Prescriptions: New Ibuprofen [Motrin] 600 mg PO Q6H #30 tab No Action Albuterol Inhaler (Mhu) [Ventolin Inhaler] 1 - 2 puff INHALATION Q6HR PRN PRN Reason: Shortness Of Breath Acetaminophen Tab [Tylenol Tab] 650 mg PO Q4H Pnv,Calcium 72/Iron/Folic Acid [ Plus Tablet] 1 tab PO HS ursodioL [Ursodiol] 300 mg PO BID Omeprazole [PriLOSEC] 10 mg PO DAILY Discharge Medication List Albuterol Inhaler (Mhu) [Ventolin Inhaler] 1 - 2 puff INHALATION Q6HR PRN 09/27/15 [History] Acetaminophen Tab [Tylenol Tab] 650 mg PO Q4H 01/07/17 [History] Pnv,Calcium 72/Iron/Folic Acid [ Plus Tablet] 1 tab PO HS 01/07/17 [History] ursodioL [Ursodiol] 300 mg PO BID 12/31/20 [History] Omeprazole [PriLOSEC] 10 mg PO DAILY 01/08/21 [History] Ibuprofen [Motrin] 600 mg PO Q6H #30 tab 01/10/21 [Rx] Follow up Appointment(s)/Referral(s): Gregory Maxwell DO [Doctor of Osteopathic Medicine] - 02/19/21 2:30 pm Patient Instructions/Handouts: Vaginal Delivery (DC) Activity/Diet/Wound Care/Special Instructions: No intercourse or anything per vagina for 6 weeks. Please call if any fever, chills, excessive vaginal bleeding, and/or abdominal pain. Discharge Disposition: HOME SELF-CARE
[2021-01-10 08:31] VITALS: BP 119/79; PULSE 88; RESP 14
[2021-01-10] MEDS: SENNOSIDES-DOCUSATE SODIUM 1 EACH TAB PO SCH (08:32)
== END 2021-01-10 10:29 | disposition home or self-care (01) | DRG 805 ==
LOC: FBPOP 07:23 → 4FBP 07:51
PROVIDERS: ADMIT Obstetrics & Gynecology; ATTEND Obstetrics & Gynecology
PROC: 10E0XZZ Delivery of Products of Conception, External Approach (ICD-10-PCS; principal; 2021-01-08)
PROC: 3E033VJ Introduction of Other Hormone into Peripheral Vein, Percutaneous Approach (ICD-10-PCS; 2021-01-08)
PROC: 10907ZC Drainage of Amniotic Fluid, Therapeutic from Products of Conception, Via Natural or Artificial Opening (ICD-10-PCS; 2021-01-08)
PROC: 00HU33Z Insertion of Infusion Device into Spinal Canal, Percutaneous Approach (ICD-10-PCS; 2021-01-08)
PROC: 3E0R3NZ Introduction of Analgesics, Hypnotics, Sedatives into Spinal Canal, Percutaneous Approach (ICD-10-PCS; 2021-01-08)
DX: O14.14 Severe pre-eclampsia complicating childbirth (principal); K83.1 Obstruction of bile duct; Z37.0 Single live birth; E84.9 Cystic fibrosis, unspecified; Z3A.36 36 weeks gestation of pregnancy; O99.284 Endocrine, nutritional and metabolic diseases complicating childbirth; Z83.3 Family history of diabetes mellitus; Z88.1 Allergy status to other antibiotic agents; Z88.8 Allergy status to other drugs, medicaments and biological substances; O26.62 Liver and biliary tract disorders in childbirth
CPT/HCPCS: 59025; 81001; 82565; 82570; 83615; 84156; 84450; 84460; 84520; 84550; 85025; 85610; 85730; 86850; 86900; 86901; 88307; 99215

== ENCOUNTER → 2021-03-30 | Outpatient (CLI) | payer BC, OTHER ==
--- NOTE | 2021-03-30 10:08 | US ---
EXAMINATION TYPE: US abdomen complete DATE OF EXAM: 03/30/2021 COMPARISON: US CLINICAL HISTORY: R10.84 RUQ ABD PAIN. Epigastric pain after meals radiating to RUQ and into back EXAM MEASUREMENTS: Liver Length: 15.3 cm Gallbladder Wall: 0.2 cm CBD: 0.3 cm Spleen: 10.3 x cm Right Kidney: 10.3 x 5.0 x 3.6 cm Left Kidney: 10.1 x 4.4 x 5.3 cm Pancreas: wnl Liver: hyperechoic oval and solid mass inferior right lobe = 1.1 x 1.0 x 1.2cm, seen on prior US and has appearance of hemangioma. Gallbladder: wnl Evidence for sonographic Rojo's sign: no CBD: wnl Spleen: wnl Right Kidney: Possible appearance of medullary sponge kidney no hydronephrosis or shadowing renal c alculi. Left Kidney: Possible appearance of medullary sponge kidney no hydronephrosis or shadowing renal calculi. Upper IVC: wnl Abd Aorta: wnl IMPRESSION: 1. 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 Clinical correlation with laboratory values and possib le CT may be helpful. 2. Hyperechoic well-defined mass in the inferior right lobe of the liver measuring 1.2 cm is suggesti ve of a hemangioma. This is similar to prior exam. 3. No gallstones.
== END | disposition home or self-care (01) ==
LOC: RADUSWWP 09:05
PROVIDERS: ATTEND Obstetrics & Gynecology
DX: R16.0 Hepatomegaly, not elsewhere classified (principal)
CPT/HCPCS: 76700

== ENCOUNTER → 2022-10-11 | Outpatient (CLI) | payer BC, OTHER ==
--- NOTE | 2022-10-12 10:38 | US ---
EXAMINATION TYPE: US transvaginal DATE OF EXAM: 10/11/2022 COMPARISON: NONE CLINICAL HISTORY: 32-year-old female N92.0 EXCESSIVE AND FREQUENT MENSTRUATION WITH REG. Heavy menses . TECHNIQUE: Transvaginal (TV). FINDINGS: EXAM MEASUREMENTS: Uterus: 7.5 x 4.1 x 5.2 cm Endometrial Stripe: .4 cm Right Ovary: 3.1 x 1.8 x 2.2 cm Left Ovary: Obscured by bowel gas. 1. Uterus: Anteverted and otherwise wnl 2. Endometrium: wnl 3. Right Ovary: wnl 4. Left Ovary: Obscured by overlying bowel gas 5. Bilateral Adnexa: wnl 6. Posterior cul-de-sac: wnl IMPRESSION: Unable to visualize the left ovary due to bowel gas. Otherwise, no specific abnormality of the pelvis on transvaginal scanning.
== END | disposition home or self-care (01) ==
LOC: RADUSWWP 16:40
PROVIDERS: ATTEND Obstetrics & Gynecology
DX: N92.0 Excessive and frequent menstruation with regular cycle (principal); R14.3 Flatulence
CPT/HCPCS: 76830

== ENCOUNTER 2023-01-11 08:26 | Emergency (ER) | payer BC, OTHER ==
[2023-01-11] MEDS ORDERED: MAGNESIUM SULFATE-D5W PMX 1 GM in DEXTROSE/WATER 1 100ML.BAG IVPB ONE (08:40)
[2023-01-11] MEDS ORDERED: SODIUM CHLORIDE 0.9% 1,000 ML IV STA (08:40)
[2023-01-11] MEDS ORDERED: DEXAMETHASONE SOD PHOSPHATE 10 MG/ML 1 ML VIAL IVP STA (08:40)
--- NOTE | 2023-01-11 08:49 | ED ---
Headache HPI - General Chief Complaint: Headache Stated Complaint: Headache Time Seen by Provider: 01/11/23 08:28 Source: patient, RN notes reviewed, old records reviewed Mode of arrival: EMS Limitations: no limitations - History of Present Illness Initial Comments: This is a pleasant nontoxic-appearing 32-year-old female that presents to the emergency room with complaints of occipital headache and neck pain since last Tuesday. Patient states that today it became worse today with tingling down her left arm. States her ex- tested positive for coronavirus and was over this weekend with the kids to celebrate a birthday. She states that she has had similar type headaches in the past and had blood work and full exam, states they attributed her headaches to hormone changes. Patient has a history of sinus congestion which she states is unable to take decongestants due to her cystic fibrosis. Denies any fevers, sore throat, nausea vomiting diarrhea or abdominal pain. MD Complaint: headache -: days(s) (8) Onset Description: gradual Location: occipital, neck Severity scale (1-10): 8 Quality: constant, similar to previous headaches Consistency: constant Improves With: medication Context: other (exposure to covid) Associated Symptoms: fever, photophobia, tingling/numbness (left arm) Treatments Prior to Arrival: Ibuprofen - Related Data On Hormonal Control: No Home Medications Medication Instructions Recorded Confirmed Omeprazole [PriLOSEC] 10 mg PO DAILY 01/08/21 01/11/23 Ascorbic Acid [Vitamin C] 1,000 mg PO DAILY 01/11/23 01/11/23 Cholecalciferol [Vitamin D3 (25 100 mcg PO DAILY 01/11/23 01/11/23 Mcg = 1000 Iu)] L.acidoph,Paracasei, B.lactis 1 cap PO DAILY 01/11/23 01/11/23 [Probiotic] Multivitamins, Thera [Multivitamin 1 tab PO DAILY 01/11/23 01/11/23 (formulary)] Zinc Gluconate [Zinc] 50 mg PO DAILY 01/11/23 01/11/23 Allergies Allergy/AdvReac Type Severity Reaction Status Date / Time iodine AdvReac Rash/Hives Verified 01/11/23 08:59 povidone-iodine AdvReac Rash/Hives Verified 01/11/23 08:59 [From Betadine] soap [From Betadine] AdvReac Rash/Hives Verified 01/11/23 08:59 tobramycin AdvReac Nausea & Verified 01/11/23 08:59 Vomiting Review of Systems ROS Statement: Those systems with pertinent positive or pertinent negative responses have been documented in the HPI. ROS Other: All systems not noted in ROS Statement are negative. Past Medical History Additional Past Medical History / Comment(s): cystic fibrosis History of Any Multi-Drug Resistant Organisms: None Reported Past Surgical History: Hernia Repair Additional Past Surgical History / Comment(s): LEFT KNEE SURGERY TIMES 2, LEFT WRIST SURGERY, HERNIA, GALLBLADDER REMOVAL Past Anesthesia/Blood Transfusion Reactions: No Reported Reaction Past Psychological History: No Psychological Hx Reported Smoking Status: Never smoker - Past Family History Father Family Medical History: Diabetes Mellitus General Exam Limitations: no limitations General appearance: alert, in no apparent distress Head exam: Present: atraumatic, normocephalic, normal inspection Eye exam: Present: normal appearance, EOMI. Absent: scleral icterus, conjunctival injection, periorbital swelling ENT exam: Present: normal oropharynx, mucous membranes moist Expanded Mouth exam: Present: tongue normal, tongue elevation. Absent: drooling, trismus, muffled voice Throat exam: tonsillar erythema. negative: tonsillomegaly, tonsillar exudate, R peritonsillar mass, L peritonsillar mass Neck exam: Present: full ROM. Absent: tenderness, meningismus, lymphadenopathy Respiratory exam: Absent: respiratory distress, accessory muscle use Cardiovascular Exam: Present: regular rate GI/Abdominal exam: Present: soft. Absent: distended, tenderness, rigid Extremities exam: Present: normal capillary refill. Absent: pedal edema Neurological exam: Present: alert, oriented X3 Psychiatric exam: Present: normal affect, normal mood Skin exam: Present: warm, dry, normal color. Absent: cyanosis, diaphoretic, petechiae, pallor Course Vital Signs 01/11/23 01/11/23 08:27 11:14 Temperature 99.3 F 97.8 F Pulse Rate 88 81 Respiratory 19 18 Rate Blood Pressure 144/88 123/71 O2 Sat by Pulse 100 97 Oximetry - Reevaluation(s) Reevaluation #1: 01/11/23 09:27 Patient states pain has not improved after Decadron IV fluids and magnesium. Fentanyl ordered. Time: 09:27 Reevaluation #2: 01/11/23 10:20 Patient resting on the cart states pain is still not improved, complaining of numbness in the left arm. CT ordered. Time: 10:20 Medical Decision Making - Medical Decision Making Vital signs are stable. Patient has no focal neurological deficits. No temporal artery pain. No signs of meningitis. No rashes. She was given IV fluids, Decadron and magnesium for her headache. Antihistamines avoided due to her cystic fibrosis. Influenza, coronavirus an RSV swab negative. She reports minimal relief of her headache. Labs and CT ordered and fentanyl given. Labs show no evidence of leukocytosis. Electrolytes unremarkable. CT brain and C-spine interpreted by me shows no evidence of intracranial bleed, mass or midline shift. No evidence of cervical spine fracture CT shows severe chronic maxillary sinusitis. No acute intracranial process. CT cervical spine shows normal alignment and prevertebral soft tissues. No evidence of fracture or subluxation. Case discussed with Dr Mancuso who recommended Toradol and Compazine. Patient states 4 out of 10 headache, mostly secondary to tension in her neck. She is agreeable to trying Valium and following up with her doctor. Patient was agreeable to discharge with family. Directed to follow up with her primary care doctor. Was pt. sent in by a medical professional or institution (, PA, CONTINUITY TESTER, urgent care, hospital, or correction...) When possible be specific @ -No Did you speak to anyone other than the patient for history (EMS, parent, family, police, friend...)? What history was obtained from this source @ -No Did you review nursing and triage notes (agree or disagree)? Why? @ -I reviewed and agree with nursing and triage notes Were old charts reviewed (outside hosp., previous admission, EMS record, old EKG, old radiological studies, urgent care reports/EKG's, correction records)? Report findings @ -No old charts were reviewed Differential Diagnosis (chest pain, altered mental status, abdominal pain women, abdominal pain men, vaginal bleeding, weakness, fever, dyspnea, syncope, headac he, dizziness, GI bleed, back pain, seizure, CVA, palpatations, mental health, musculoskeletal)? @ -Differential Headache: Migraine, tension, cluster, carbon monoxide, central venous thrombosis, pension karma temporal arteritis, acute closure glaucoma, intercranial hemorrhage, m astoiditis, sinusitis, head injury, this is not meant to be an all-inclusive list. EKG interpreted by me (3pts min.). @ -n/a X-rays interpreted by me (1pt min.). @ -None done CT interpreted by me (1pt min.). @ -Yes no evidence of intracranial bleed, mass or midline shift. U/S interpreted by me (1pt. min.). @ -None done What testing was considered but not performed or refused? (CT, X-rays, U/S, labs)? Why? @ -None What meds were considered but not given or refused? Why? @ -None Did you discuss the management of the patient with other professionals ( professionals i.e. , PA, CONTINUITY TESTER, lab, RT, psych nurse, forensic social worker, health insurance sales agent, teacher, chief medical officer, case advocate)? Give summary @ -No Was smoking cessation discussed for >3mins.? @ -No Was critical care preformed (if so, how long)? @ -No Were there social determinants of health that impacted care today? How? (Homelessness, low income, unemployed, alcoholism, drug addiction, transpo rtation, low edu. Level, literacy, decrease access to med. care, halfway, rehab)? @ -No Was there de-escalation of care discussed even if they declined (Discuss DNR or withdrawal of care, Hospice)? DNR status @ -No What co-morbidities impacted this encounter? (DM, HTN, Smoking, COPD, CAD, Cancer, CVA, ARF, Chemo, Hep., AIDS, mental health diagnosis, sleep apnea, morbid obesity)? @ -Cystic fibrosis Was patient admitted / discharged? Hospital course, mention meds given and route, prescriptions, significant lab abnormalities, going to OR and other pertinent info. @ -Is charged Undiagnosed new problem with uncertain prognosis? @ -No Drug Therapy requiring intensive monitoring for toxicity (Heparin, Nitro, I nsulin, Cardizem)? @ -No Were any procedures done? @ -No Diagnosis/symptom? @ -Acute headache Acute, or Chronic, or Acute on Chronic? @ -Acute Uncomplicated (without systemic symptoms) or Complicated (systemic symptoms)? @ -Uncomplicated Side effects of treatment? @ -No Exacerbation, Progression, or Severe Exacerbation? @ -No Poses a threat to life or bodily function? How? (Chest pain, USA, [place], pneumonia, PE, COPD, DKA, ARF, appy, cholecystitis, CVA, Diverticulitis, Homicidal, Suicidal, threat to staff... and all critical care pts) @ -No - Lab Data Result diagrams: 01/11/23 08:52 01/11/23 08:52 Lab Results 01/11/23 01/11/23 01/11/23 Range/Units 08:49 08:52 08:52 WBC 5.6 (3.8-10.6) k/uL RBC 4.05 (3.80-5.40) m/uL Hgb 13.4 (11.4-16.0) gm/dL Hct 38.7 (34.0-46.0) % MCV 95.5 (80.0-100.0) fL MCH 33.0 (25.0-35.0) pg MCHC 34.6 (31.0-37.0) g/dL RDW 11.9 (11.5-15.5) % Plt Count 312 (150-450) k/uL MPV 6.9 Neutrophils % 56 % Lymphocytes % 32 % Monocytes % 5 % Eosinophils % 5 % Basophils % 1 % Neutrophils # 3.1 (1.3-7.7) k/uL Lymphocytes # 1.8 (1.0-4.8) k/uL Monocytes # 0.3 (0-1.0) k/uL Eosinophils # 0.3 (0-0.7) k/uL Basophils # 0.0 (0-0.2) k/uL Sodium 139 (137-145) mmol/L Potassium 4.3 (3.5-5.1) mmol/L Chloride 106 (98-107) mmol/L Carbon Dioxide 26 (22-30) mmol/L Anion Gap 7 mmol/L BUN 12 (7-17) mg/dL Creatinine 0.74 (0.52-1.04) mg/dL Est GFR (CKD-EPI)AfAm >90 (>60 ml/min/1.73 sqM) Est GFR (CKD-EPI)NonAf >90 (>60 ml/min/1.73 sqM) Glucose 95 (74-99) mg/dL Calcium 9.5 (8.4-10.2) mg/dL Total Bilirubin 0.4 (0.2-1.3) mg/dL AST 18 (14-36) U/L ALT 20 (4-34) U/L Alkaline Phosphatase 108 (38-126) U/L Total Protein 7.6 (6.3-8.2) g/dL Albumin 4.5 (3.5-5.0) g/dL Influenza Type A (PCR) Not Detected (Not Detectd) Influenza Type B (PCR) Not Detected (Not Detectd) RSV (PCR) Not Detected (Not Detectd) SARS-CoV-2 (PCR) Not Detected (Not Detectd) Disposition Clinical Impression: Headache Disposition: HOME SELF-CARE Condition: Good Instructions (If sedation given, give patient instructions): Acute Headache (ED) Additional Instructions: Increase your fluid intake. Tylenol and Motrin as needed for pain. Follow-up with the primary care doctor. Return with any new or concerning symptoms. Is patient prescribed a controlled substance at d/c from ED?: No Referrals: Danilo Hector MD [Primary Care Provider] - 1-2 days Time of Disposition: 11:07
[2023-01-11 09:02] LABS: Basophils % (A) 1 %; Eosinophils # (A) 0.3 k/uL (0-0.7); Eosinophils % (A) 5 %; HCT 38.7 % (34.0-46.0); HGB 13.4 gm/dL (11.4-16.0); Lymphocytes # (A) 1.8 k/uL (1.0-4.8); Lymphocytes % (A) 32 %; MCHC 34.6 g/dL (31.0-37.0); MCV 95.5 fL (80.0-100.0); Mean Platelet Volume 6.9; Monocytes # (A) 0.3 k/uL (0-1.0); Monocytes % (A) 5 %; Neutrophils # (A) 3.1 k/uL (1.3-7.7); Neutrophils % (A) 56 %; Platelet Count 312 k/uL (150-450); RBC 4.05 m/uL (3.80-5.40); RDW 11.9 % (11.5-15.5); WBC 5.6 k/uL (3.8-10.6)
[2023-01-11 09:12] LABS: ALT 20 U/L (4-34); AST 18 U/L (14-36); African American GFR (CKD) >90 (>60 ml/min/1.73 sqM); Albumin 4.5 g/dL (3.5-5.0); Alkaline Phosphatase 108 U/L (38-126); Anion Gap 7 mmol/L; Blood Urea Nitrogen 12 mg/dL (7-17); Calcium 9.5 mg/dL (8.4-10.2); Carbon Dioxide 26 mmol/L (22-30); Chloride 106 mmol/L (98-107); Glucose 95 mg/dL (74-99); Non-African American GFR(CKD) >90 (>60 ml/min/1.73 sqM); Potassium 4.3 mmol/L (3.5-5.1); Sodium 139 mmol/L (137-145); Total Bilirubin 0.4 mg/dL (0.2-1.3); Total Protein 7.6 g/dL (6.3-8.2)
[2023-01-11] MEDS ORDERED: fentaNYL (PF) 50 MCG/ML 2 ML AMP IVP STA (09:26)
[2023-01-11] MEDS ORDERED: PROCHLORPERAZINE INJ 10 MG/2 ML VIAL IVP STA (09:32)
[2023-01-11] MEDS ORDERED: KETOROLAC 15 MG/ML 1 ML VIAL IVP STA (09:32)
--- NOTE | 2023-01-11 10:55 | CT ---
EXAMINATION TYPE: CT brain tila guzman DATE OF EXAM: 01/11/2023 COMPARISON: None HISTORY: Headache CT DLP: 1216.[address] Brain: Unenhanced CT of the brain was performed. The ventricles, basal cisterns and sulci overlying the cerebral convexities demonstrate a normal appe arance. There is no evidence for intracranial hemorrhage or sulcal effacement. No mass effects are seen. If symptoms persist consider MRI. Osseous calvarium is intact. Severe chronic sinusitis seen bilaterally. IMPRESSION: Severe chronic maxillary sinusitis. No acute intracranial process. CT Cervical Spine: Unenhanced CT of the cervical spine was performed with bone and soft tissue window settings submitted . Coronal and sagittal reconstruction is obtained. There is normal alignment and prevertebral soft tissues. I do not see evidence for fracture or sublu xation. No significant degenerative changes are present. The lung apices are clear. IMPRESSION: No evidence for acute fracture or subluxation of the cervical spine.
[2023-01-11] MEDS ORDERED: diazePAM 2 MG TAB PO STA (11:06)
[2023-01-11 11:19] VITALS: BP 123/71; PULSE 81; RESP 18; TEMP 97.8
== END 2023-01-11 11:25 | disposition home or self-care (01) ==
LOC: EC 08:26
DX: J32.0 Chronic maxillary sinusitis (principal); Z91.048 Other nonmedicinal substance allergy status; Z88.8 Allergy status to other drugs, medicaments and biological substances; Z20.822 Contact with and (suspected) exposure to COVID-19
CPT/HCPCS: 99285 ×2; 96365 ×2; 96375 ×5; 36415; 80053; 85025; 87636; 72125; 70450; J0780; J1100; J3010; J3475; J1885

== ENCOUNTER 2024-10-28 00:16 | Emergency (ER) | payer OTHER ==
[2024-10-28 00:24] VITALS: TEMP 98.2
[2024-10-28] MEDS: SODIUM CHLORIDE 0.9% 1,000 ML IV ONE (00:51)
--- NOTE | 2024-10-28 00:53 | ED ---
General Adult HPI - General Chief complaint: Headache Stated complaint: Hedache Time Seen by Provider: 10/28/24 00:18 Source: patient, RN notes reviewed, old records reviewed Mode of arrival: ambulatory - History of Present Illness Initial comments: 34-year-old female with history of occipital neuralgia presenting with headache. Patient has had a headache over the past 24 hours and has had upper respiratory symptoms for several weeks. She reports headache is predominantly on the right side at the base of her head and upper neck. She reports that this headache did worsen prior to arrival. No fever. She has had nausea without vomiting. - Related Data Home Medications Medication Instructions Recorded Confirmed Omeprazole [PriLOSEC] 10 mg PO DAILY 01/08/21 01/11/23 Ascorbic Acid [Vitamin C] 1,000 mg PO DAILY 01/11/23 01/11/23 Cholecalciferol [Vitamin D3 (25 100 mcg PO DAILY 01/11/23 01/11/23 Mcg = 1000 Iu)] L.acidoph,Paracasei, B.lactis 1 cap PO DAILY 01/11/23 01/11/23 [Probiotic] Multivitamins, Thera [Multivitamin 1 tab PO DAILY 01/11/23 01/11/23 (formulary)] Zinc Gluconate [Zinc] 50 mg PO DAILY 01/11/23 01/11/23 Allergies Allergy/AdvReac Type Severity Reaction Status Date / Time hydrocortisone AdvReac Itching Verified 10/28/24 00:24 [From Cortizone-10] iodine AdvReac Rash/Hives Verified 01/11/23 08:59 povidone-iodine AdvReac Rash/Hives Verified 01/11/23 08:59 [From Betadine] soap [From Betadine] AdvReac Rash/Hives Verified 01/11/23 08:59 tobramycin AdvReac Nausea & Verified 01/11/23 08:59 Vomiting Review of Systems ROS Statement: Those systems with pertinent positive or pertinent negative responses have been documented in the HPI. ROS Other: All systems not noted in ROS Statement are negative. Past Medical History Additional Past Medical History / Comment(s): cystic fibrosis History of Any Multi-Drug Resistant Organisms: None Reported Past Surgical History: Hernia Repair Additional Past Surgical History / Comment(s): LEFT KNEE SURGERY TIMES 2, LEFT WRIST SURGERY, HERNIA, GALLBLADDER REMOVAL Past Anesthesia/Blood Transfusion Reactions: No Reported Reaction Past Psychological History: No Psychological Hx Reported Smoking Status: Never smoker Past Alcohol Use History: Occasional Past Drug Use History: None Reported - Past Family History Father Family Medical History: Diabetes Mellitus General Exam General appearance: alert, in no apparent distress Head exam: Present: atraumatic, normocephalic Eye exam: Present: normal appearance, PERRL ENT exam: Present: mucous membranes dry Neck exam: Present: normal inspection, tenderness, full ROM. Absent: meningismus Respiratory exam: Present: normal lung sounds bilaterally. Absent: respiratory distress Cardiovascular Exam: Present: regular rate, normal rhythm GI/Abdominal exam: Present: soft. Absent: distended, tenderness, guarding Neurological exam: Present: alert, oriented X3, CN II-XII intact. Absent: motor sensory deficit Psychiatric exam: Present: normal affect, normal mood Skin exam: Present: warm, dry, intact, normal color Course Vital Signs 10/28/24 10/28/24 00:19 01:01 Temperature 98.2 F Pulse Rate 100 90 Respiratory 18 16 Rate Blood Pressure 151/89 133/91 O2 Sat by Pulse 97 100 Oximetry Medical Decision Making - Medical Decision Making Was pt. sent in by a medical professional or institution (, PA, GEAR LAPPER, urgent care, hospital, or assisted...) When possible be specific @ -No Did you speak to anyone other than the patient for history (EMS, parent, family, police, friend...)? What history was obtained from this source @ -No Did you review nursing and triage notes (agree or disagree)? Why? @ -I reviewed and agree with nursing and triage notes Were old charts reviewed (outside hosp., previous admission, EMS record, old EKG, old radiological studies, urgent care reports/EKG's, assisted records)? Report findings @ -No old charts were reviewed Differential Headache: Migraine, tension, cluster, carbon monoxide, central venous thrombosis, pension karma temporal arteritis, acute closure glaucoma, intercranial hemorrhage, mastoiditis, sinusitis, head injury, this is not meant to be an all-inclusive list. EKG interpreted by me (3pts min.). @ -As above X-rays interpreted by me (1pt min.). @ -None done CT interpreted by me (1pt min.). @ -None done U/S interpreted by me (1pt. min.). @ -None done What testing was considered but not performed or refused? (CT, X-rays, U/S, labs)? Why? @ -None What meds were considered but not given or refused? Why? @ -None Did you discuss the management of the patient with other professionals (professionals i.e. , PA, GEAR LAPPER, lab, RT, psych nurse, licensed social worker, hub borer, teacher, drug abuse resistance education officer, case reviewer)? Give summary @ -No Was smoking cessation discussed for >3mins.? @ -No Was critical care preformed (if so, how long)? @ -No Were there social determinants of health that impacted care today? How? (Homelessness, low income, unemployed, alcoholism, drug addiction, transportation, low edu. Level, literacy, decrease access to med. care, long term, rehab)? @ -No Was there de-escalation of care discussed even if they declined (Discuss DNR or withdrawal of care, Hospice)? DNR status @ -No What co-morbidities impacted this encounter? (DM, HTN, Smoking, COPD, CAD, Cancer, CVA, ARF, Chemo, Hep., AIDS, mental health diagnosis, sleep apnea, morbid obesity)? @ -[Occipital neuralgia, cystic fibrosis Was patient admitted / discharged? Hospital course, mention meds given and route, prescriptions, significant lab abnormalities, going to OR and other pertinent info. @ -Hospital course 34-year-old female with occipital headache and neck pain. Patient states this is tender to the touch. She has had this in the past. Patient is overall well-appearing afebrile. No focal neurologic findings. She has normal CBC, normal CMP. After symptomatic treatment she is feeling significantly better and is eager for discharge. She is given strict return parameters. She will return to the emergency department with any new or worsening symptoms. Undiagnosed new problem with uncertain prognosis? @ -No Drug Therapy requiring intensive monitoring for toxicity (Heparin, Nitro, Insulin, Cardizem)? @ -No Were any procedures done? @ -No Diagnosis/symptom? @Headache Acute, or Chronic, or Acute on Chronic? @ -acute Uncomplicated (without systemic symptoms) or Complicated (systemic symptoms)? @ -Default Side effects of treatment? @ -No Exacerbation, Progression, or Severe Exacerbation? @ -No Poses a threat to life or bodily function? How? (Chest pain, [place], [place], pneumonia, PE, COPD, DKA, ARF, appy, cholecystitis, CVA, Diverticulitis, Homicidal, Suicidal, threat to staff... and all critical care pts) @ -low risk at this time - Lab Data Result diagrams: 10/28/24 00:43 10/28/24 00:43 Lab Results 10/28/24 10/28/24 10/28/24 Range/Units 00:43 00:43 00:43 WBC 8.2 (3.8-10.6) k/uL RBC 3.88 (3.80-5.40) m/uL Hgb 12.9 (11.4-16.0) gm/dL Hct 38.6 (34.0-46.0) % MCV 99.5 (80.0-100.0) fL MCH 33.1 (25.0-35.0) pg MCHC 33.3 (31.0-37.0) g/dL RDW 12.0 (11.5-15.5) % Plt Count 371 (150-450) k/uL MPV 7.1 Neutrophils % 57 % Lymphocytes % 34 % Monocytes % 4 % Eosinophils % 3 % Basophils % 0 % Neutrophils # 4.7 (1.3-7.7) k/uL Lymphocytes # 2.8 (1.0-4.8) k/uL Monocytes # 0.4 (0-1.0) k/uL Eosinophils # 0.2 (0-0.7) k/uL Basophils # 0.0 (0-0.2) k/uL Sodium 138 (137-145) mmol/L Potassium 4.1 (3.5-5.1) mmol/L Chloride 104 (98-107) mmol/L Carbon Dioxide 22 (22-30) mmol/L Anion Gap 12 mmol/L BUN 6 L (7-17) mg/dL Creatinine 0.68 (0.52-1.04) mg/dL Est GFR (CKD-EPI)AfAm >90 (>60 ml/min/1.73 sqM) Est GFR (CKD-EPI)NonAf >90 (>60 ml/min/1.73 sqM) Glucose 117 H (74-99) mg/dL Calcium 9.4 (8.4-10.2) mg/dL Total Bilirubin 0.4 (0.2-1.3) mg/dL AST 17 (14-36) U/L ALT 15 (4-34) U/L Alkaline Phosphatase 72 (38-126) U/L Total Protein 7.1 (6.3-8.2) g/dL Albumin 4.1 (3.5-5.0) g/dL Influenza Type A (PCR) Not Detected (Not Detectd) Influenza Type B (PCR) Not Detected (Not Detectd) RSV (PCR) Not Detected (Not Detectd) SARS-CoV-2 (PCR) Not Detected (Not Detectd) Disposition Clinical Impression: Headache Disposition: HOME SELF-CARE Condition: Fair Instructions (If sedation given, give patient instructions): Acute Headache (ED) Is patient prescribed a controlled substance at d/c from ED?: No Referrals: Danilo Hector MD [Primary Care Provider] - 1-2 days Time of Disposition: 02:12
[2024-10-28 00:54] LABS: Basophils % (A) 0 %; Eosinophils # (A) 0.2 k/uL (0-0.7); Eosinophils % (A) 3 %; HCT 38.6 % (34.0-46.0); HGB 12.9 gm/dL (11.4-16.0); Lymphocytes # (A) 2.8 k/uL (1.0-4.8); Lymphocytes % (A) 34 %; MCH 33.1 pg (25.0-35.0); MCHC 33.3 g/dL (31.0-37.0); MCV 99.5 fL (80.0-100.0); Mean Platelet Volume 7.1; Monocytes # (A) 0.4 k/uL (0-1.0); Monocytes % (A) 4 %; Neutrophils # (A) 4.7 k/uL (1.3-7.7); Neutrophils % (A) 57 %; Platelet Count 371 k/uL (150-450); RBC 3.88 m/uL (3.80-5.40); WBC 8.2 k/uL (3.8-10.6)
[2024-10-28] MEDS: KETOROLAC 15 MG/ML 1 ML VIAL IVP STA (00:54)
[2024-10-28] MEDS: METOCLOPRAMIDE 5 MG/ML 2 ML VIAL IVP STA (00:55)
[2024-10-28 01:10] LABS: ALT 15 U/L (4-34); AST 17 U/L (14-36); African American GFR (CKD) >90 (>60 ml/min/1.73 sqM); Albumin 4.1 g/dL (3.5-5.0); Alkaline Phosphatase 72 U/L (38-126); Anion Gap 12 mmol/L; Blood Urea Nitrogen 6 mg/dL (7-17); Calcium 9.4 mg/dL (8.4-10.2); Carbon Dioxide 22 mmol/L (22-30); Chloride 104 mmol/L (98-107); Glucose 117 mg/dL (74-99); Non-African American GFR(CKD) >90 (>60 ml/min/1.73 sqM); Potassium 4.1 mmol/L (3.5-5.1); Sodium 138 mmol/L (137-145); Total Bilirubin 0.4 mg/dL (0.2-1.3); Total Protein 7.1 g/dL (6.3-8.2)
[2024-10-28 01:30] LABS: Influenza A Not Detected (Not Detectd); Influenza B Not Detected (Not Detectd); RSV Not Detected (Not Detectd)
[2024-10-28 03:00] VITALS: BP 124/76; PULSE 94; RESP 18
== END 2024-10-28 03:08 | disposition home or self-care (01) ==
LOC: EC 00:16
DX: R51.9 Headache, unspecified (principal); E84.9 Cystic fibrosis, unspecified; M54.81 Occipital neuralgia; Z88.8 Allergy status to other drugs, medicaments and biological substances; Z91.041 Radiographic dye allergy status; Z91.09 Other allergy status, other than to drugs and biological substances
CPT/HCPCS: 36415; 80053; 85025; 87636; 99284; 96374; 96375 ×2; 96361; J2765; J3360; J1885

== ENCOUNTER 2025-04-24 04:13 | Emergency (ER) | payer OTHER ==
--- NOTE | 2025-04-24 04:42 | ED ---
Back Pain HPI - General Chief Complaint: Back Pain/Injury Stated Complaint: Kidney Pain Time Seen by Provider: 04/24/25 04:33 Source: patient Limitations: no limitations - History of Present Illness Initial Comments: This patient is a 35-year-old woman who presents evaluation of right flank pain. The patient states that she noticed over the course last night that she was urinating more frequently than his usual. She then was feeling some aching in the bilateral flanks, worse on the right side. Patient took an Azo but the symptoms got worse so she presents to have evaluation here. MD Complaint: back pain -: hour(s) Similar Symptoms Previously: No Place: home Radiation: flank Severity: moderate Quality: aching Consistency: constant Improves With: none Worsens With: none - Related Data Home Medications Medication Instructions Recorded Confirmed Omeprazole [PriLOSEC] 10 mg PO DAILY 01/08/21 01/11/23 Ascorbic Acid [Vitamin C] 1,000 mg PO DAILY 01/11/23 01/11/23 Cholecalciferol [Vitamin D3 (25 100 mcg PO DAILY 01/11/23 01/11/23 Mcg = 1000 Iu)] L.acidoph,Paracasei, B.lactis 1 cap PO DAILY 01/11/23 01/11/23 [Probiotic] Multivitamins, Thera [Multivitamin 1 tab PO DAILY 01/11/23 01/11/23 (formulary)] Zinc Gluconate [Zinc] 50 mg PO DAILY 01/11/23 01/11/23 Previous Rx's Medication Instructions Recorded Cephalexin [Keflex] 500 mg PO Q6HR #28 cap 04/24/25 Allergies Allergy/AdvReac Type Severity Reaction Status Date / Time latex Allergy Rash/Hives Verified 04/24/25 04:22 hydrocortisone AdvReac Itching Verified 04/24/25 04:22 [From Cortizone-10] iodine AdvReac Rash/Hives Verified 04/24/25 04:22 povidone-iodine AdvReac Rash/Hives Verified 04/24/25 04:22 [From Betadine] soap [From Betadine] AdvReac Rash/Hives Verified 04/24/25 04:22 tobramycin AdvReac Nausea & Verified 04/24/25 04:22 Vomiting Review of Systems ROS Statement: Those systems with pertinent positive or pertinent negative responses have been documented in the HPI. ROS Other: All systems not noted in ROS Statement are negative. Constitutional: Denies: fever, chills, weakness Respiratory: Denies: cough, dyspnea Cardiovascular: Denies: chest pain, palpitations, edema Gastrointestinal: Reports: abdominal pain. Denies: nausea, vomiting, diarrhea, melena Genitourinary: Reports: frequency. Denies: dysuria, hematuria, abnormal menses Musculoskeletal: Denies: back pain Skin: Denies: rash Neurological: Denies: headache, weakness, numbness Past Medical History Additional Past Medical History / Comment(s): cystic fibrosis History of Any Multi-Drug Resistant Organisms: None Reported Past Surgical History: Hernia Repair Additional Past Surgical History / Comment(s): LEFT KNEE SURGERY TIMES 2, LEFT WRIST SURGERY, HERNIA, GALLBLADDER REMOVAL Past Anesthesia/Blood Transfusion Reactions: No Reported Reaction Past Psychological History: No Psychological Hx Reported Smoking Status: Never smoker Past Alcohol Use History: Occasional Past Drug Use History: None Reported - Past Family History Father Family Medical History: Diabetes Mellitus General Exam Limitations: no limitations General appearance: alert, in no apparent distress Head exam: Present: atraumatic, normocephalic Eye exam: Present: normal appearance. Absent: scleral icterus, conjunctival injection Neck exam: Present: normal inspection Respiratory exam: Present: normal lung sounds bilaterally. Absent: respiratory distress, wheezes, rales, rhonchi, stridor, accessory muscle use Cardiovascular Exam: Present: normal rhythm, tachycardia, normal heart sounds. Absent: systolic murmur, diastolic murmur, rubs, gallop GI/Abdominal exam: Present: soft. Absent: distended, tenderness, guarding, rebound, rigid, mass, pulsatile mass, hernia Extremities exam: Present: normal inspection, normal capillary refill. Absent: pedal edema, calf tenderness Back exam: Present: normal inspection, CVA tenderness (R). Absent: CVA tenderness (L), paraspinal tenderness, vertebral tenderness Neurological exam: Present: alert Skin exam: Present: warm, dry, intact, normal color. Absent: rash Course Vital Signs 04/24/25 04/24/25 04/24/25 04:20 06:03 07:02 Temperature 98.1 F 99 F Pulse Rate 139 H 113 H 123 H Respiratory 18 16 16 Rate Blood Pressure 138/88 127/77 130/90 O2 Sat by Pulse 100 99 98 Oximetry Medical Decision Making - Medical Decision Making Was pt. sent in by a medical professional or institution (, SALONI, GEOSPATIAL PROGRAM MANAGEMENT OFFICER, urgent care, hospital, or half-way...) When possible be specific @ -[No] Did you speak to anyone other than the patient for history (EMS, parent, family, police, friend...)? What history was obtained from this source @ -[No] Did you review nursing and triage notes (agree or disagree)? Why? @ -[I reviewed and agree with nursing and triage notes] Were old charts reviewed (outside hosp., previous admission, EMS record, old EKG, old radiological studies, urgent care reports/EKG's, half-way records)? Report findings @ -[No old charts were reviewed] Differential Diagnosis (chest pain, altered mental status, abdominal pain women, abdominal pain men, vaginal bleeding, weakness, fever, dyspnea, syncope, headache, dizziness, GI bleed, back pain, seizure, CVA, palpatations, mental health, musculoskeletal)? @ -[Differential Abdominal Pain Women: Appendicitis, Cholecystitis, diverticulosis, ischemic bowel, pancreatitis, hepatitis, UTI, gastroenteritis, AAA, incarcerated hernia, bowel obstruction, constipation, inflammatory bowel, hepatitis, peptic ulcer disease, splenic infar ction, perforated viscus, vulvitis, ovarian torsion, PID, kidney stone, placenta abruption, this is not meant to be an all-inclusive list EKG interpreted by me (3pts min.). @ -[As above] X-rays interpreted by me (1pt min.). @ -[None done] CT interpreted by me (1pt min.). @ -[None done] U/S interpreted by me (1pt. min.). @ -[None done] What testing was considered but not performed or refused? (CT, X-rays, U/S, labs)? Why? @ -[None] What meds were considered but not given or refused? Why? @ -[None] Did you discuss the management of the patient with other professionals (professionals i.e. SALONI Jay, GEOSPATIAL PROGRAM MANAGEMENT OFFICER, lab, RT, psych nurse, social welfare clerk, java grails developer, teacher, air defence officer, employment evaluator/case manager)? Give summary @ -[No] Was smoking cessation discussed for >3mins.? @ -[No] Was critical care preformed (if so, how long)? @ -[No] Were there social determinants of health that impacted care today? How? (Homelessness, low income, unemployed, alcoholism, drug addiction, transportation, low edu. Level, literacy, decrease access to med. care, alf, rehab)? @ -[No] Was there de-escalation of care discussed even if they declined (Discuss DNR or withdrawal of care, Hospice)? DNR status @ -[No] What co-morbidities impacted this encounter? (DM, HTN, Smoking, COPD, CAD, Cancer, CVA, ARF, Chemo, Hep., AIDS, mental health diagnosis, sleep apnea, morbid obesity)? @ -[None] Was patient admitted / discharged? Hospital course, mention meds given and route, prescriptions, significant lab abnormalities, going to OR and other pertinent info. @ -[Patient is a 35-year-old woman presenting with abdominal/flank pain and found to have urinary tract infection. Patient started on antibiotic and will continue course as outpatient. Discussed appropriate further care and follow-up as well as return parameters Undiagnosed new problem with uncertain prognosis? @ -[No] Drug Therapy requiring intensive monitoring for toxicity (Heparin, Nitro, Insulin, Cardizem)? @ -[No] Were any procedures done? @ -[No] Diagnosis/symptom? @ -[Acute urinary tract infection Acute, or Chronic, or Acute on Chronic? @ -[Acute Uncomplicated (without systemic symptoms) or Complicated (systemic symptoms)? @ -Uncomplicated Side effects of treatment? @ -[No] Exacerbation, Progression, or Severe Exacerbation? @ -[No] Poses a threat to life or bodily function? How? (Chest pain, [place], [place], pneumonia, PE, COPD, DKA, ARF, appy, cholecystitis, CVA, Diverticulitis, Homicidal, Suicidal, threat to staff... and all critical care pts) @ -[No] All treatments are based on ideal body weight as in ED triage - Lab Data Result diagrams: 04/24/25 04:45 04/24/25 04:45 Lab Results 04/24/25 04/24/25 04/24/25 Range/Units 04:45 04:45 04:45 WBC 9.71 (4.50-10.00) 10*3/uL RBC 3.74 L (4.10-5.20) 10*6/uL Hgb 13.0 (12.0-15.0) g/dL Hct 37.4 (37.2-46.3) % MCV 100.0 H (80.0-97.0) fL MCH 34.8 H (27.0-32.0) pg MCHC 34.8 (32.0-37.0) g/dL Plt Count 242 (140-440) 10*3/uL MPV 10.0 (9.5-12.2) fL Immature Gran % (Auto) 0.3 % Neutrophils % 78.0 % Lymphocytes % 8.8 % Monocytes % 7.6 % Eosinophils % 4.8 % Basophils % 0.5 % Immature Gran # 0.03 (0.00-0.04) 10*3/uL Neutrophils # 7.57 (1.80-7.70) 10*3/uL Lymphocytes # 0.85 L (0.90-5.00) 10*3/uL Monocytes # 0.74 (0.20-1.00) 10*3/uL Eosinophils # 0.47 H (0.04-0.35) 10*3/uL Basophils # 0.05 (0.00-0.10) 10*3/uL Sodium (137-145) mmol/L Potassium (3.5-5.1) mmol/L Chloride (98-107) mmol/L Carbon Dioxide (22-30) mmol/L Anion Gap mmol/L BUN (7-17) mg/dL Creatinine (0.52-1.04) mg/dL Est GFR (CKD-EPI)AfAm (>60 ml/min/1.73 sqM) Est GFR (CKD-EPI)NonAf (>60 ml/min/1.73 sqM) Glucose (74-99) mg/dL Plasma Lactic Acid Brandon (0.7-2.0) mmol/L Calcium (8.4-10.2) mg/dL Total Bilirubin (0.2-1.3) mg/dL AST (14-36) U/L ALT (4-34) U/L Alkaline Phosphatase (38-126) U/L Total Protein (6.3-8.2) g/dL Albumin (3.5-5.0) g/dL Urine Color Brown Urine Appearance Cloudy H (Clear) Urine pH 6.0 (5.0-8.0) Ur Specific [place] 1.007 (1.001-1.035) Urine Protein 1+ H (Negative) Urine Glucose (UA) Negative (Negative) Urine Ketones Negative (Negative) Urine Blood Negative (Negative) Urine Nitrite Positive H (Negative) Urine Bilirubin Negative (Negative) Urine Urobilinogen <2.0 (<2.0) mg/dL Ur Leukocyte Esterase Moderate H (Negative) Urine RBC 3 (0-5) /hpf Urine WBC 63 H (0-5) /hpf Ur Squamous Epith Cells 4 (0-4) /hpf Urine Bacteria Few H (None) /hpf Urine Mucus Rare H (None) /hpf Urine HCG, Qual Not Detected (Not Detectd) 04/24/25 04/24/25 Range/Units 04:45 04:45 WBC (4.50-10.00) 10*3/uL RBC (4.10-5.20) 10*6/uL Hgb (12.0-15.0) g/dL Hct (37.2-46.3) % MCV (80.0-97.0) fL MCH (27.0-32.0) pg MCHC (32.0-37.0) g/dL Plt Count (140-440) 10*3/uL MPV (9.5-12.2) fL Immature Gran % (Auto) % Neutrophils % % Lymphocytes % % Monocytes % % Eosinophils % % Basophils % % Immature Gran # (0.00-0.04) 10*3/uL Neutrophils # (1.80-7.70) 10*3/uL Lymphocytes # (0.90-5.00) 10*3/uL Monocytes # (0.20-1.00) 10*3/uL Eosinophils # (0.04-0.35) 10*3/uL Basophils # (0.00-0.10) 10*3/uL Sodium 141 (137-145) mmol/L Potassium 3.9 (3.5-5.1) mmol/L Chloride 107 (98-107) mmol/L Carbon Dioxide 23 (22-30) mmol/L Anion Gap 11 mmol/L BUN 8 (7-17) mg/dL Creatinine 0.99 (0.52-1.04) mg/dL Est GFR (CKD-EPI)AfAm 85 (>60 ml/min/1.73 sqM) Est GFR (CKD-EPI)NonAf 74 (>60 ml/min/1.73 sqM) Glucose 109 H (74-99) mg/dL Plasma Lactic Acid Brandon 1.1 (0.7-2.0) mmol/L Calcium 9.5 (8.4-10.2) mg/dL Total Bilirubin 1.0 (0.2-1.3) mg/dL AST 18 (14-36) U/L ALT 13 (4-34) U/L Alkaline Phosphatase 60 (38-126) U/L Total Protein 7.1 (6.3-8.2) g/dL Albumin 4.3 (3.5-5.0) g/dL Urine Color Urine Appearance (Clear) Urine pH (5.0-8.0) Ur Specific [place] (1.001-1.035) Urine Protein (Negative) Urine Glucose (UA) (Negative) Urine Ketones (Negative) Urine Blood (Negative) Urine Nitrite (Negative) Urine Bilirubin (Negative) Urine Urobilinogen (<2.0) mg/dL Ur Leukocyte Esterase (Negative) Urine RBC (0-5) /hpf Urine WBC (0-5) /hpf Ur Squamous Epith Cells (0-4) /hpf Urine Bacteria (None) /hpf Urine Mucus (None) /hpf Urine HCG, Qual (Not Detectd) - EKG Data -: EKG Interpreted by [place] EKG shows normal: sinus rhythm, axis (Normal), intervals (Normal), QRS complexes (Normal) Rate: tachycardia (Rate 129 bpm) Interpretation: nonspecific ST-T wave changes Disposition Clinical Impression: UTI (urinary tract infection) Disposition: HOME SELF-CARE Condition: Good Instructions (If sedation given, give patient instructions): Urinary Tract Infection in Women (ED) Prescriptions: Cephalexin [Keflex] 500 mg PO Q6HR #28 cap Is patient prescribed a controlled substance at d/c from ED?: No Referrals: Danilo Hector MD [Primary Care Provider] - 1-2 days
[2025-04-24] MEDS: SODIUM CHLORIDE 0.9% 1,000 ML IV ONE (05:05)
[2025-04-24] MEDS: ONDANSETRON 4 MG/2 ML VIAL IVP STA (05:07)
[2025-04-24] MEDS: KETOROLAC 15 MG/ML 1 ML VIAL IVP STA (05:07)
[2025-04-24] MEDS: LACTATED RINGERS 1,000 ML IV SCH (05:08)
[2025-04-24 05:17] LABS: Basophils # (A) 0.05 10*3/uL (0.00-0.10); Basophils % (A) 0.5 %; Eosinophils # (A) 0.47 10*3/uL (0.04-0.35); Eosinophils % (A) 4.8 %; HCT 37.4 % (37.2-46.3); HGB 13.0 g/dL (12.0-15.0); Lymphocytes # (A) 0.85 10*3/uL (0.90-5.00); Lymphocytes % (A) 8.8 %; MCH 34.8 pg (27.0-32.0); MCHC 34.8 g/dL (32.0-37.0); MCV 100.0 fL (80.0-97.0); Monocytes # (A) 0.74 10*3/uL (0.20-1.00); Monocytes % (A) 7.6 %; Neutrophils # (A) 7.57 10*3/uL (1.80-7.70); Neutrophils % (A) 78.0 %; Platelet Count 242 10*3/uL (140-440); RBC 3.74 10*6/uL (4.10-5.20); RDW 11.9 % (11.5-14.5); WBC 9.71 10*3/uL (4.50-10.00)
[2025-04-24 05:35] LABS: ALT 13 U/L (4-34); AST 18 U/L (14-36); African American GFR (CKD) 85 (>60 ml/min/1.73 sqM); Albumin 4.3 g/dL (3.5-5.0); Alkaline Phosphatase 60 U/L (38-126); Anion Gap 11 mmol/L; Blood Urea Nitrogen 8 mg/dL (7-17); Calcium 9.5 mg/dL (8.4-10.2); Carbon Dioxide 23 mmol/L (22-30); Chloride 107 mmol/L (98-107); Glucose 109 mg/dL (74-99); Non-African American GFR(CKD) 74 (>60 ml/min/1.73 sqM); Potassium 3.9 mmol/L (3.5-5.1); Sodium 141 mmol/L (137-145); Total Protein 7.1 g/dL (6.3-8.2)
[2025-04-24 06:05] VITALS: RESP 16
[2025-04-24 06:07] LABS: Bacteria,Urine Few /hpf; Bilirubin,Urine Negative (Negative); Blood,Urine Negative (Negative); Color,Urine Brown; Glucose,Urine (UA) Negative (Negative); Ketones,Urine Negative (Negative); Leukocyte Esterase,Urine Moderate (Negative); Mucus,Urine Rare /hpf; Nitrite,Urine Positive (Negative); PH, Urine 6.0 (5.0-8.0); Protein,Urine 1+ (Negative); RBC,Urine 3 /hpf (0-5); Specific Gravity,Urine 1.007 (1.001-1.035); Squamous Epithelial Cell,Urine 4 /hpf (0-4); Urobilinogen,Urine <2.0 mg/dL (<2.0); WBC,Urine 63 /hpf (0-5)
[2025-04-24 07:12] VITALS: BP 130/90; PULSE 123; TEMP 99
== END 2025-04-24 07:08 | disposition home or self-care (01) ==
LOC: EC 04:13
DX: N39.0 Urinary tract infection, site not specified (principal); Z91.048 Other nonmedicinal substance allergy status; Z88.8 Allergy status to other drugs, medicaments and biological substances; Z91.040 Latex allergy status
CPT/HCPCS: 36415; 93005; 80053; 83605; 85025; 81001; 81025; 99284; 96365; 96361; 96375; J2405; J0696; J1885